=== PATIENT | female | born 1985 | race Caucasian/White ===

== ENCOUNTER 2020-06-27 19:25 | Emergency (ER) | payer OTHER, SELFPAY ==
[2020-06-27 19:37] VITALS: BP 128/89; PULSE 81; RESP 20; TEMP 36.2; O2SAT 100
--- NOTE | 2020-06-27 20:13 | ED.GENADULT ---
HPI - General Adult General Chief complaint: Skin/Abscess/Foreign Body Stated complaint: Burn on hand Time Seen by Provider: 06/27/20 20:14 Source: patient and RN notes reviewed Mode of arrival: ambulatory Limitations: no limitations History of Present Illness HPI narrative: 35-year-old female presents with complaints of right hand burn after grabbing a hot frying [place] for the past 2.5 hours. Romana reports while cooking dinner she grabbed a hot frying [place] causing burn injury to RT hand, allowed parents to eat prior to seeking medical attention. Ice and Silver sulfadiazine with little to no relief. Tenderness and blisters throughout RT hand. No loss of mobility. No smoke inhalation. No foreign body sensation. Denies fever or chills. Tolerating po liquids well. No throat or tongue swelling. LMP 06/07/2020. Remains active. The patient reports she have not been diagnosed with COVID-19. The patient reports she received 2 Pfizer COVID-19 vaccines. The patient reports she is not waiting for the results of a COVID-19 lab test. The patient reports she do not have weakness or fatigue. The patient reports she do not have a new or worsening cough or shortness of breath. Denies chest pain. The patient reports she do not have any rhinorrhea, congestion, sore throat, loss of taste or smell, nausea, vomiting, abdominal pain, and diarrhea. Denies recent traveling. Denies concerns for COVID-19 or exposures. At this time, patient is not suspected of having COVID-19. Some parts of this dictation were generated by voice recognition software and may contain typographical and/or grammatical inaccuracies. Related Data Home Medications Medication Instructions Recorded Confirmed levothyroxine 06/27/20 Allergies Allergy/AdvReac Type Severity Reaction Status Date / Time thimerosal Allergy Intermediate HIVES Verified 02/01/19 08:59 morphine Allergy Unknown Rash Verified 02/01/19 08:59 aloe Allergy Rash Verified 02/01/19 08:59 amoxicillin AdvReac Unknown sick to Verified 02/01/19 08:59 stomach BENZOPEROXIDE Allergy Rash Uncoded 02/01/19 08:59 AMOXICILLIN TRIHYDRATE AdvReac Nausea Uncoded 02/01/19 08:59 POTASSIUM CLAVULANATE AdvReac Nausea Uncoded 02/01/19 08:59 Review of Systems Review of Systems: Narrative: CONSTITUTIONAL: Denies fever, chills, sweats. EYES: Denies visual changes, redness, discharge. ENT: Denies rhinorrhea, congestion, sore throat, otalgia. CARDIOVASCULAR: Denies chest pain, palpitations, edema. RESPIRATORY: Denies dyspnea, wheezing, cough. GASTROINTESTINAL: Denies abdominal pain, nausea, vomiting, diarrhea. SKIN: Denies rash or itching. Burn to RT hand with blisters to fingers. No drainage. MUSCULOSKELETAL: Denies acute back pain, joint pain, or myalgia. NEUROLOGIC: Denies numbness or focal weakness. PSYCHIATRIC: Denies anxiety or depression. All other systems reviewed are negative, except as documented in HPI and below. [facility] Past Medical History Medical History (Updated 07/04/20 @ 18:14 by MARION Gallagher) Hypothyroidism Surgical History Surgical History (Updated 06/27/20 @ 20:35 by MARION Gallagher) History of adenoidectomy History of tonsillectomy Family History Family History Father Diabetes mellitus Hypertension Family history of arthritis Family history of malignant neoplasm Social History Social History (Updated 06/27/20 @ 20:36 by MARION Gallagher) Smoking status: Never smoker Tobacco type: cigarettes Second hand tobacco smoke exposure: No Alcohol intake: never Substance use: never Living arrangements: with family Occupation/Education: occupation Gender identity (if verbalized by the patient): Female Comments At time of signature, agree with nurse past medical, surgical, social, and family history. There is no relevant family history pertinent to the presenting complaint. E
[2020-06-27] MEDS: KETOROLAC (*BKC) 60 MG/2 ML VIAL IM (20:32)
[2020-06-27] MEDS: SILVER SULFADIAZINE 1% CR 50 GM JAR (*BKC) 1 APPLIC TOPICAL (20:36)
== END 2020-06-27 20:54 | disposition home or self-care (01) ==
PROVIDERS: Emergency Provider Nurse Practitioner Family; PCP Family Medicine
DX: T23.251A Burn of second degree of right palm, initial encounter (principal); T23.231A Burn of second degree of multiple right fingers (nail), not including thumb, initial encounter; X19.XXXA Contact with other heat and hot substances, initial encounter; E03.9 Hypothyroidism, unspecified
CPT/HCPCS: 16020; 96372; 99213; A9270; G0463; J1885

== ENCOUNTER 2023-06-29 15:44 | Emergency (ER) | payer OTHER, BC, SELFPAY ==
--- NOTE | ~2023-06-29 | CT_ITS ---
EXAMINATION: CT abdomen pelvis w con DATE: 06/29/2023 18:54 INDICATION: Left lower abdominal pain TECHNIQUE: Computed tomography (CT) of the abdomen and pelvis was performed with 100 mL Omnipaque-350 intravenous contrast. Automated exposure control and iterative reconstruction technique were employe d. The dose-length product was 1198.71 mGy-cm. COMPARISON: None FINDINGS: Lung bases are clear. Heart size is normal. No pericardial or pleural effusion. Small sliding-type hi atal hernia. Liver, gallbladder, spleen, pancreas, bilateral adrenal glands and left kidney are marcus l. 1 cm right renal cyst. Bowels including the appendix are normal. Bladder and uterus are normal. Co mplex cystic structures at the left adnexa which could represent either multiple ovarian cysts the la rgest measuring up to 3.3 cm versus a serpiginous dilated left fallopian tube. 1.2 cm right adnexal c yst. Trace amount of free fluid at the left adnexa. No pathologically enlarged abdominal or pelvic ly mphadenopathy. IMPRESSION: 1. Trace amount of free fluid at the left adnexa surrounding a complex cystic structure with appearan ce suspicious for a hydrosalpinx or pyosalpinx with differential including multiple independent ovari an cyst. Reviewed, dictated and finalized at location A. IMPRESSION: 1. Trace amount of free fluid at the left adnexa surrounding a complex cystic s tructure with appearance suspicious for a hydrosalpinx or pyosalpinx with diffe rential including multiple independent ovarian cyst.
--- NOTE | ~2023-06-29 | US_ITS ---
EXAMINATION: US transvaginal DATE: 06/29/2023 19:59 INDICATION: Left lower quadrant pain post egg retrieval TECHNIQUE: Multiple endovaginal sonographic images of the pelvis were obtained. COMPARISON: CT dated 06/29/2023 FINDINGS: The uterus measures 8.0 x 4.8 x 5.4 cm. The endometrial complex measures 10 mm in thickness. The rig ht ovary measures 3.6 x 1.9 x 3.0 cm. The left ovary measures 5.1 x 3.5 x 3.8 cm. There are bilateral subcentimeter simple appearing anechoic ovarian cysts along with several bilateral more complex appe aring cystic lesions. One measuring 2.8 cm in the left kidney is nearly anechoic with internal weblik e pattern of thin internal septations classic for hemorrhagic cyst. There are several additional comp karla or cystic lesions in both ovaries largest on the left measuring 3.1 cm and the largest on the rig ht measuring up to 2.1 cm which are heterogeneously hypoechoic, few with additional internal septatio ns which are without discernible internal vascular flow on color Doppler likely representing addition al hemorrhagic cysts. Pressure flow identified in the surrounding ovarian tissue at both ovaries on c olor Doppler. There is a small amount of anechoic free fluid in the cul-de-sac and around the left ov wei. IMPRESSION: 1. Multiple suggesting hemorrhagic simple and complex cystic lesions at both ovaries with appearance suggesting hemorrhagic cyst likely related to reported recent ovarian stimulation and a pretreatment. Consider 12 week follow-up ultrasound to document resolution. Reviewed, dictated and finalized at location A. IMPRESSION: 1. Multiple suggesting hemorrhagic simple and complex cystic lesions at both ov amy with appearance suggesting hemorrhagic cyst likely related to reported re cent ovarian stimulation and a pretreatment. Consider 12 week follow-up ultraso und to document resolution.
[2023-06-29 15:58] VITALS: BP 144/76; PULSE 82; RESP 18; TEMP 36.6; O2SAT 100
--- NOTE | 2023-06-29 17:18 | ED.ABDPAIN ---
HPI - Abdominal Pain General Chief Complaint: Abdominal Pain <Mercedes Andino PA-C - Last Filed: 06/30/23 00:25> Stated Complaint: ABDOMINAL PAIN <Mercedes Andino PA-C - Last Filed: 06/30/23 00:25> Time Seen by Provider: 06/29/23 17:18 <Mercedes Andino PA-C - Last Filed: 06/30/23 00:25> Focused HPI: This is a 38 year old female that presents to the ER for left lower abdominal pain. Reports the pain has been sharp and intermittent. Ongoing since earlier this morning. Reports some nausea. Denies fever, vomiting, dysuria or hematuria. GENERAL: Well-appearing, well-nourished, and in no acute distress. HEAD: Normocephalic, atraumatic. CHEST: Clear to auscultation. ?No respiratory distress. HEART: Regular rate and rhythm.? NEURO: ?Alert and oriented x3. Patient screened in triage and initial orders placed.? ?Additional care and disposition to be based upon?diagnostic testing and treatment. <Mercedes Andino PA-C - Last Filed: 06/30/23 00:25> Source: patient <Christian Taveras MD - Last Filed: 06/29/23 18:06> Mode of arrival: ambulatory <Christian Taveras MD - Last Filed: 06/29/23 18:06> Limitations: no limitations <Christian Taveras MD - Last Filed: 06/29/23 18:06> History of Present Illness HPI narrative: 38-year-old otherwise healthy here with complaints of sudden onset of left-sided lower abdominal pain radiating into her left flank since this morning. Patient states that she was visiting her mother who is undergoing rehab at [place] developed a sudden onset of pain. She also mentions that about 9 days ago she had a egg retrieval. No previous history of kidney stones or kidney infections. She denies any vaginal bleeding or discharge. <Christian Taveras MD - Last Filed: 06/29/23 18:06> MD elicited complaint: abdominal pain <Christian Taveras MD - Last Filed: 06/29/23 18:06> Pertinent past history: none <Christian Taveras MD - Last Filed: 06/29/23 18:06> Onset (ago): hour(s) (6) <Christian Taveras MD - Last Filed: 06/29/23 18:06> Pain Consistency: constant <Christian Taveras MD - Last Filed: 06/29/23 18:06> Location: [facility]Q <Christian Taveras MD - Last Filed: 06/29/23 18:06> Severity: moderate <Christian Taveras MD - Last Filed: 06/29/23 18:06> Quality: aching <Christian Taveras MD - Last Filed: 06/29/23 18:06> Radiation: L flank <Christian Taveras MD - Last Filed: 06/29/23 18:06> Migration to: no migration <Christian Taveras MD - Last Filed: 06/29/23 18:06> Exacerbating factors: nothing <Christian Taveras MD - Last Filed: 06/29/23 18:06> Relieving factors: nothing <Christian Taveras MD - Last Filed: 06/29/23 18:06> Associated symptoms: denies other symptoms <Christian Taveras MD - Last Filed: 06/29/23 18:06> Related Data Home Medications: Home Medications Medication Instructions Recorded Confirmed levothyroxine 100 mcg capsule 100 mcg PO DAILY 08/22/22 (Tirosint) <DAMIAN Christianson Last Filed: 06/30/23 00:25> Allergies/Adverse Reactions: Allergies Allergy/AdvReac Type Severity Reaction Status Date / Time thimerosal Allergy Intermediate HIVES Verified 06/29/23 16:01 morphine Allergy Unknown Rash Verified 06/29/23 16:01 aloe Allergy Rash Verified 06/29/23 16:01 amoxicillin AdvReac Unknown sick to Verified 06/29/23 16:01 stomach doxycycline AdvReac Unknown Unknown Verified 06/29/23 16:01 BENZOPEROXIDE Allergy Rash Uncoded 06/29/23 18:28 AMOXICILLIN TRIHYDRATE AdvReac Nausea Uncoded 06/29/23 18:28 POTASSIUM CLAVULANATE AdvReac Nausea Uncoded 06/29/23 18:28 <Mercedes Andino PA-C - Last Filed: 06/30/23 00:25> Review of Systems Review of Systems: All systems reviewed & are unremarkable except as noted in HPI and below <Christian Taveras MD - Last Filed: 06/29/23 18:06> Constitutional: Constitutional: Reports no additional constitutional complaints <Christian Taveras MD - Last Filed:
[2023-06-29 18:20] VITALS: BP 122/81; PULSE 72; RESP 18; O2SAT 100
[2023-06-29 18:29] LABS: Basophils Percent Auto 0.3 % (0.2-1.2); Eosinophils Absolute Auto 0.1 K/mm3 (0-0.3); Eosinophils Percent Auto 0.4 % (0-4.4); Hematocrit 41.4 % (37.0-47.0); Hemoglobin 14.5 g/dL (12.0-15.0); Immature Granulocyte Absolute 0.06 K/mm3 (0.00-0.031); Immature Granulocyte Percent A 0.5 % (0-0.5); Lymphocytes Absolute Auto 2.49 K/mm3 (0.9-3.2); Lymphocytes Percent Auto 22.3 % (18.3-44.2); Mean Corpuscular Hemoglobin 31.1 pg (26-34); Mean Corpuscular Volume 88.8 fl (80-100); Mean Platelet Volume 9.9 fl (7.4-10.4); Monocytes Absolute Auto 0.7 K/mm3 (0.1-0.6); Monocytes Percent Auto 6.6 % (2.6-8.5); Neutrophils Absolute Auto 7.8 K/mm3 (1.3-6.7); Neutrophils Percent Auto 69.9 % (45.5-73.1); Platelet Count Result 269 k/mm3 (150-375); Red Blood Count 4.66 M/mm3 (4.2-5.4); Red Cell Distribution Width 12.4 % (11.5-14.5); White Blood Count 11.2 K/mm3 (4.5-10.0)
[2023-06-29 18:34] LABS: Appearance Urine Clear (Clear); Bacteria Urine None Seen /hpf; Bilirubin Urine Negative (Negative); Blood Urine 1+ (Negative); Color Urine Yellow (Yellow); Glucose Urine UA Negative (Negative); Ketones Urine Trace mg/dL (Negative); Leukocyte Esterase Ur Negative LEU/UL (Negative); Nitrate Urine Negative (Negative); Non Pathogenic Casts 0-2; Protein Urine Negative (Negative); RBC Urine 0-2 /hpf (0-2); Specific Grav Ur 1.016 (1.001-1.035); Squamous Epithelial Cell Urine Occasional /hpf (Few); Urobilinogen Urine 0.2 mg/dL (<2.0); WBC Urine 0-5 /hpf (0-3); pH Urine 5.5 (5.0-9.0)
[2023-06-29 18:37] LABS: Add Urine Microscopic? YES
[2023-06-29 18:40] LABS: Alanine Aminotransferase 36 U/L (6-35); Albumin Level 4.6 g/dL (3.5-5.1); Alkaline Phosphatase 88 U/L (38-126); Anion Gap 7 mmol/L (4-12); Aspartate Amino Transferase 35 U/L (14-36); Bilirubin,Total 0.7 mg/dL (0.2-1.3); Blood Urea Nitrogen 14 mg/dL (7-17); Calcium 9.8 mg/dL (8.4-10.2); Carbon Dioxide 25 mmol/L (22-30); Chloride 106 mmol/L (98-107); Estimated CRCL calculation 113 ml/min; Estimated Glomerular Filt Rate > 60; Glucose 117 mg/dL (65-110); Lipase 84 U/L (23-300); Potassium 3.9 mmol/L (3.4-5.0); Sodium 138 mmol/L (137-145)
[2023-06-29 19:18] VITALS: BP 130/96; PULSE 67; RESP 16; O2SAT 99
[2023-06-29 21:51] VITALS: BP 134/75; PULSE 67; RESP 18; O2SAT 99
== END 2023-06-29 21:52 | disposition home or self-care (01) ==
PROVIDERS: Physician Assistant; Emergency Provider Emergency Medicine; PCP Family Medicine
DX: N83.202 Unspecified ovarian cyst, left side (principal); E03.9 Hypothyroidism, unspecified
CPT/HCPCS: 36415; 74177; 76830; 80053; 81001; 81025; 83690; 85025; 99284; Q9967

== ENCOUNTER 2023-07-03 15:32 | Emergency (ER) | payer OTHER, BC, SELFPAY ==
--- NOTE | ~2023-07-03 | US_ITS ---
EXAMINATION: US transvaginal DATE: 07/03/2023 18:31 INDICATION: left adnexal pain TECHNIQUE: Multiple transvaginal sonographic images of the pelvis were obtained. COMPARISON: 06/29/2023; CT abdomen pelvis 06/29/2023 FINDINGS: Uterus: 7.7 x 3.7 x 4.6 cm. Endometrial complex measures 4 mm. Right Ovary: 3.1 x 2.1 x 2.0 cm. Vascular flow is present. 9 mm hypoechoic focus. Left Ovary: 5.3 x 3.4 x 3.3 cm. Vascular flow is present. 2.3 and 2.2 cm cystic lesions with irregula r, avascular internal echogenicity. There is trace free fluid in the pelvis. IMPRESSION: No sonographic evidence to suggest ovarian torsion. Nonsimple bilateral ovarian cysts, likely representing resolving hemorrhagic cysts given the history of recent egg retrieval, prior ultrasound findings, and encouraging interval change. Prior recommenda tion for 3 month follow-up ultrasound to document complete resolution is unchanged. Reviewed, dictated and finalized at location K. IMPRESSION: No sonographic evidence to suggest ovarian torsion. Nonsimple bilateral ovarian cysts, likely representing resolving hemorrhagic cy sts given the history of recent egg retrieval, prior ultrasound findings, and e ncouraging interval change. Prior recommendation for 3 month follow-up ultrasou nd to document complete resolution is unchanged.
[2023-07-03 15:33] VITALS: BP 126/93; PULSE 66; RESP 18; TEMP 36.3; O2SAT 100
[2023-07-03 16:33] VITALS: BP 157/107; PULSE 88; RESP 16; TEMP 36.6; O2SAT 100
[2023-07-03 16:43] LABS: Basophils Percent Auto 0.5 % (0.2-1.2); Eosinophils Absolute Auto 0.1 K/mm3 (0-0.3); Eosinophils Percent Auto 1.9 % (0-4.4); Hematocrit 42.6 % (37.0-47.0); Hemoglobin 14.8 g/dL (12.0-15.0); Immature Granulocyte Absolute 0.01 K/mm3 (0.00-0.031); Immature Granulocyte Percent A 0.1 % (0-0.5); Lymphocytes Absolute Auto 2.54 K/mm3 (0.9-3.2); Lymphocytes Percent Auto 34.7 % (18.3-44.2); Mean Corpuscular HGB Conc 34.7 g/dl (32-36); Mean Corpuscular Hemoglobin 31.2 pg (26-34); Mean Corpuscular Volume 89.7 fl (80-100); Mean Platelet Volume 9.9 fl (7.4-10.4); Monocytes Absolute Auto 0.9 K/mm3 (0.1-0.6); Monocytes Percent Auto 11.9 % (2.6-8.5); Neutrophils Absolute Auto 3.7 K/mm3 (1.3-6.7); Neutrophils Percent Auto 50.9 % (45.5-73.1); Platelet Count Result 321 k/mm3 (150-375); Red Blood Count 4.75 M/mm3 (4.2-5.4); White Blood Count 7.3 K/mm3 (4.5-10.0)
[2023-07-03 16:48] LABS: Bacteria Urine None Seen /hpf; Non Pathogenic Casts 0-2; RBC Urine >100 /hpf (0-2); Squamous Epithelial Cell Urine None Seen /hpf (Few)
[2023-07-03 16:55] LABS: Appearance Urine Turbid (Clear); Bilirubin Urine Negative (Negative); Blood Urine 3+ (Negative); Color Urine Orange (Yellow); Glucose Urine UA Negative (Negative); Ketones Urine Negative (Negative); Leukocyte Esterase Ur 1+ LEU/UL (Negative); Nitrate Urine Negative (Negative); Protein Urine 1+ mg/dL (Negative); Specific Grav Ur 1.025 (1.001-1.035); Urobilinogen Urine 0.2 mg/dL (<2.0); pH Urine 5.5 (5.0-9.0)
[2023-07-03 16:57] LABS: Alanine Aminotransferase 37 U/L (6-35); Albumin Level 4.4 g/dL (3.5-5.1); Alkaline Phosphatase 87 U/L (38-126); Anion Gap 10 mmol/L (4-12); Aspartate Amino Transferase 33 U/L (14-36); Bilirubin,Total 0.6 mg/dL (0.2-1.3); Blood Urea Nitrogen 17 mg/dL (7-17); Calcium 9.6 mg/dL (8.4-10.2); Carbon Dioxide 22 mmol/L (22-30); Chloride 107 mmol/L (98-107); Estimated CRCL calculation 113 ml/min; Estimated Glomerular Filt Rate > 60; Glucose 102 mg/dL (65-110); Lipase 72 U/L (23-300); Potassium 3.9 mmol/L (3.4-5.0); Sodium 139 mmol/L (137-145)
[2023-07-03 16:57] LABS: Add Urine Microscopic? YES
--- NOTE | 2023-07-03 17:01 | ED.ABDPAIN ---
HPI - Abdominal Pain General Chief Complaint: Abdominal Pain Stated Complaint: left abd pain Time Seen by Provider: 07/03/23 16:32 History of Present Illness HPI narrative: Patient is a 38-year-old female with history of hypothyroidism, infertility issues, here with left lower quadrant and adnexal pain. She states this pain it has been present for several days, she was seen in this emergency department 2 days ago, received a CT scan and ultrasound which showed some hemorrhagic cyst on the left ovary. She notes that she is currently following with a fertility specialist out of [facility]. She had egg retrieval on June 19. She has had continued left adnexal pain which she describes as pain attacks which occurred approximately 1-3 times daily. It is a sharp pain in her left lower quadrant that makes her double over and unable to do anything else. She did contact her fertility specialists up at [facility] today and they told her that they could get her in for an appointment in 1 hour. Since she lives almost 5 hours away from their clinic she was unable to make these appointments and requested to be seen in their clinic tomorrow. They demanded that she come into the emergency department for repeat ultrasound to rule out ovarian torsion. Patient currently does not have pain right now. She denies any urinary symptoms. She did start her menstrual cycle approximately 2 days ago. Related Data Home Medications Medication Instructions Recorded Confirmed levothyroxine 100 mcg capsule 100 mcg PO DAILY 08/22/22 (Tirosint) Allergies Allergy/AdvReac Type Severity Reaction Status Date / Time thimerosal Allergy Intermediate HIVES Verified 07/03/23 15:37 morphine Allergy Unknown Rash Verified 07/03/23 15:37 aloe Allergy Rash Verified 07/03/23 15:37 amoxicillin AdvReac Unknown sick to Verified 07/03/23 15:37 stomach doxycycline AdvReac Unknown Unknown Verified 07/03/23 15:37 BENZOPEROXIDE Allergy Rash Uncoded 07/03/23 15:37 AMOXICILLIN TRIHYDRATE AdvReac Nausea Uncoded 07/03/23 15:37 POTASSIUM CLAVULANATE AdvReac Nausea Uncoded 07/03/23 15:37 Review of Systems Review of Systems: All systems reviewed & are unremarkable except as noted in HPI and below PMFSH Past Medical History Medical History Hypothyroidism Surgical History Surgical History History of adenoidectomy History of tonsillectomy Family History Family History Father Diabetes mellitus Hypertension Family history of arthritis Family history of malignant neoplasm Mother Rectal cancer Diabetes mellitus Hypertension Heart disease Grandparent Stomach cancer Diabetes mellitus Hypertension Heart disease Grandparent Lung cancer Social History Social History Smoking status: Never smoker Tobacco type: cigarettes Second hand tobacco smoke exposure: No Alcohol intake: never Substance use: never Living arrangements: with family Occupation/Education: occupation Gender identity (if verbalized by the patient): Female Exam Narrative: GENERAL: Well-appearing, well-nourished, and in no acute distress. HEAD: Normocephalic, atraumatic. EYES: PERRLA and EOMI. ENT: Nares clear. Mucous membranes moist. NECK: Supple. CHEST: Clear to auscultation. No respiratory distress. HEART: Regular rate and rhythm. Normal peripheral pulses. ABDOMEN: Soft, nontender, nondistended. EXTREMITIES: Normal range of motion. No edema. SKIN: Warm, dry, no rash. NEURO: No focal deficits. Alert and oriented x3. PSYCH: Normal mood and affect. Course Course Emergency Course: Chart review performed. Patient here with left lower abdominal pain. She is reportedly undergoing fertility treatments out of [place], had recent egg retreival. Called her
[2023-07-03 18:01] VITALS: BP 118/80
--- NOTE | 2023-07-05 11:40 | PC.NURSE ---
LATE ENTRY This note is being entered to document information to the patient's record. Lab notified this director that the urine culture that was ordered and collected was unable to be processed, culture order was cancelled by lab. Mercedes EPPERSON on duty today was asked to review this chart to determine if patient needed to return for recollection. 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
== END 2023-07-03 20:54 | disposition home or self-care (01) ==
PROVIDERS: Emergency Medicine; Emergency Provider Student in an Organized Health Care Education/Training Program; PCP Family Medicine
DX: N83.202 Unspecified ovarian cyst, left side (principal); E03.9 Hypothyroidism, unspecified
CPT/HCPCS: 36415; 76830; 80053; 81001; 81025; 83690; 85025; 87086; 99284

== ENCOUNTER 2024-02-04 09:00 | Outpatient (CLI) | payer OTHER, BC, SELFPAY ==
--- NOTE | 2024-02-04 11:15 | NEURO_ITS ---
Impression: # Complains of pain in wrist/elbow. Not diabetic. ? # Normal Nerve Conduction Study; No Carpal Tunnel Syndrome or ulnar neuropathy. ? # Normal needle/EMG exam. ? # Clinical correlation recommended. Nerve Conduction Studies Anti Sensory Summary Table ?Stim Site NR Peak (ms) P-T Amp (?V) Site1 Site2 Delta-P (ms) Dist (cm) Yair (m/s) Left Median Anti Sensory (2-3nd Digit) Wrist ? 2.6 92.7 Wrist 2-3nd Digit 2.6 14.0 54 Wrist ? 2.4 73.8 Wrist 2-3nd Digit 2.6 14.0 54 Right Median Anti Sensory (2-3nd Digit) Wrist ? 3.1 66.7 Wrist 2-3nd Digit 3.1 14.0 45 Wrist ? 3.3 50.5 Wrist 2-3nd Digit 3.1 14.0 45 Left Radial Anti Sensory (Base 1st Digit) Wrist ? 1.4 23.7 Wrist Base 1st Digit 1.4 0.0 Right Radial Anti Sensory (Base 1st Digit) Wrist ? 1.9 24.1 Wrist Base 1st Digit 1.9 0.0 Left Ulnar Anti Sensory (5th Digit) Wrist ? 1.8 58.7 Wrist 5th Digit 1.8 14.0 78 Right Ulnar Anti Sensory (5th Digit) Wrist ? 1.9 63.2 Wrist 5th Digit 1.9 14.0 74 Motor Summary Table ?Stim Site NR Onset (ms) O-P Amp (mV) Site1 Site2 Delta-0 (ms) Dist (cm) Yair (m/s) Left Median Motor (Abd Poll Brev) Wrist ? 3.6 4.2 Elbow Wrist 4.9 28.0 57 Elbow ? 8.5 3.6 Right Median Motor (Abd Poll Brev) Wrist ? 2.8 2.5 Elbow Wrist 4.9 28.0 57 Elbow ? 7.7 1.4 Left Ulnar Motor (Abd Dig Minimi) Wrist ? 2.2 7.8 A Elbow Wrist 5.4 31.0 57 A Elbow ? 7.6 6.0 Right Ulnar Motor (Abd Dig Minimi) Wrist ? 1.8 6.6 A Elbow Wrist 5.2 29.0 56 A Elbow ? 7.0 5.7 F Wave Studies ?NR F-Lat (ms) L-R F-Lat (ms) Left Median (Mrkrs) (Abd Poll Brev) ? 27.11 0.67 Right Median (Mrkrs) (Abd Poll Brev) ? 26.44 0.67 Left Ulnar (Mrkrs) (Abd Dig Min) ? 26.68 0.87 Right Ulnar (Mrkrs) (Abd Dig Min) ? 25.81 0.87 EMG ?Side Muscle Nerve Root Ins Act Fibs Amp Dur Recrt Comment Right 1stDorInt Ulnar C8-T1 Nml Nml Nml Nml Nml Right Ext Indicis Radial (Post Int) C7-8 Nml Nml Nml Nml Nml Right Ext Digitorum Radial (Post Int) C7-8 Nml Nml Nml Nml Nml Right BrachioRad Radial C5-6 Nml Nml Nml Nml Nml Right PronatorTeres Median C6-7 Nml Nml Nml Nml Nml Right Abd Poll Brev Median C8-T1 Nml Nml Nml Nml Nml Right ABD Dig Min Ulnar C8-T1 Nml Nml Nml Nml Nml Left 1stDorInt Ulnar C8-T1 Nml Nml Nml Nml Nml Left Ext Indicis Radial (Post Int) C7-8 Nml Nml Nml Nml Nml Left Ext Digitorum Radial (Post Int) C7-8 Nml Nml Nml Nml Nml Left BrachioRad Radial C5-6 Nml Nml Nml Nml Nml Left PronatorTeres Median C6-7 Nml Nml Nml Nml Nml Left Abd Poll Brev Median C8-T1 Nml Nml Nml Nml Nml Left ABD Dig Min Ulnar C8-T1 Nml Nml Nml Nml Nml MTDD
== END 2024-02-04 09:01 | disposition home or self-care (01) ==
PROVIDERS: PCP Family Medicine; Visit Provider Plastic Surgery
DX: G56.03 Carpal tunnel syndrome, bilateral upper limbs (principal)
CPT/HCPCS: 95886; 95911

== ENCOUNTER 2024-02-26 08:57 | Outpatient (CLI) | payer OTHER, BC, SELFPAY ==
--- NOTE | ~2024-02-26 | XR_ITS ---
Right wrist Technique: PA, oblique, lateral, and ulnar deviation views were obtained. Clinical History: Ulnar nerve lesion Findings: No acute fracture or dislocation is seen. Osseous alignment is anatomic. Joint spaces are p reserved. Soft tissues are unremarkable. Impression: Unremarkable right wrist radiographs. Reviewed, dictated and finalized at location . 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
--- OUTSIDE RECORDS SUMMARY | 2024-02-28 16:35 | XMS_ITS | Encounter Summary ---
Author Organization [facility] Address [address] [place] [address] Care Team Providers Care Publications Writer Name Role Phone Andrea Peña MD Primary Care Provider [phone] Encounter Details Date Type Department Care Team (Late st Contact Info) Description 07/18/2023 Lab Requisition [facility] - DermPath Lab [address] [place] [address] Nalini Fox MD [address] [facility] [address] [place] [address] Social History Tobacco Use Types Packs/Day Years Used Date Smoking Tobacco: Never Smokeless Tobacco: Never Alcohol Use Standard Drinks/Week Comments Yes 0 (1 standard drink = 0.6 oz pur e alcohol) Sex and Gender Information Value Date Recorded Sex Assigned at Not on file Gender Identity Not on file Sexual Orientation Not on file documented as of this encounter Plan of Treatment Not on file documented as of this encounter Procedures Procedure Name Priority Date/Time Associated Diagnosis Comments DERMATOPATHOLOGY Routine 07/18/2023 1:36 PM CDT documented in this encounter Results * DERMATOPATHOLOGY (07/18/2023 1:36 PM CDT) Case Report Dermatopathology Report ? Case: [id number] ? Authorizing Provider: ??Nalini Fox MD ?Collected: ? 07/18/2023 01:36 PM ? Ordering Location: ? [facility] - ??Received: ?07/19/2023 01:56 PM ? DermPath Lab ? Pathologist: ? Denisa Sunshine MD ? Specimen: ?Skin, left back ? 4 3:53 PM CDT DERMATOPATHOLOGY LABORATORY Final Diagnosis Specimen A. SKIN, left back: INTRADERMAL MELANOCYTIC NEVUS (D22.5) 4 3:53 PM CDT DERMATOPATHOLOGY LABORATORY Clinical History Nevus irregular irritated Jonas papule 4 3:53 PM CDT DERMATOPATHOLOGY LABORATORY Gross Description Specimen A: Received is one formalin filled container labeled with the patient's name and designated left back. The specimen consists of a shave biopsy measuring 8x5x4 mm. Jar 0. 4 3:53 PM CDT DERMATOPATHOLOGY LABORATORY Microscopic Description Specimen A. SKIN, left back: There are nests of cytologically bland melanocytes within the dermis that mature with depth. 4 3:53 PM CDT DERMATOPATHOLOGY LABORATORY Disclaimer An external and internal positive and negative controls are appropriate for the histochemical, immunohistochemical and immunofluorescence stain(s) in this case (if any), except where stated explicitly. The performance characteristics of the stain(s) cited in this report were developed and its performance characteristic determined by the Dermatopathology Laboratory at [facility], directed by Dr. Cyndie Webster. These tests need not be, and therefore are not, approved by the [place] Food and Drug Administration. The tests are used for clinical purposes. Billing Codes Specimen Charges Stain Charges 72541 1 4 3:53 PM CDT DERMATOPATHOLOGY LABORATORY Embedded Images 4 3:53 PM CDT DERMATOPATHOLOGY LABORATORY Pathology/Cytolo gy TISSUE SPECIMEN FROM SKIN / Unknown 07/18/2023 1:36 PM CDT 07/19/2023 1:56 PM CDT Nalini Fox MD LAB - PATHOLOGY/CYTO LOGY ORDERABLES DERMATOPATHOLOGY LABORATORY [facility] - Department of Dermatology [facility] Medicine [address] [place] [address], [address] [phone] documented in this encounter Visit Diagnoses Not on filedocumented in this encounter Care Teams Publications Writer Relationship Specialty Start Date End Date Andrea Peña MD PCP - General 07/13/15 documented as of this encounter
--- OUTSIDE RECORDS SUMMARY | 2024-02-28 16:35 | XMS_ITS | Clinical Summary ---
Author Organization [facility] Address [address] [place] [address] Care Team Providers Care Lens Generator Name Role Phone Andrea Peña MD Primary Care Provider [phone] Allergies Active Allergy Reactions Criticality Noted Date Comments Aloe Vera Unknown Amoxicillin-Pot Clavulanate Nausea & Vomiting Low 0 08/23/2015 Estradiol Rash Medium 08/14/2023 Morphine Rash Medium 08/23/2015 Opioids - Morphine Analogues Thimerosal Unknown 08/05/2020 Medications valACYclovir (VALTREX) 500 mg tablet Take 1 tablet (500 mg total) by mouth daily 01/13/20 23 Active chorionic gonadotropin (PREGNYL) 10,000 unit injection Inject up to 10,000 units IM as directed by 1 each 1 03/01/19 24 Active Additional Information Patient not taking.Reported on 02/14/2024 follitropin beta (Follistim AQ) 900 unit/1.08 mL cartridge Inject 75u to 300u SQ daily as directed by 3.24 mL 2 03/01/19 24 Active Additional Information Patient not taking.Reported on 02/14/2024 menotropins (Menopur) 75 unit recon soln Inject 75 to 300 units SQ daily as directed by 30 each 2 03/01/19 24 Active Additional Information Patient not taking.Reported on 02/14/2024 azithromycin (ZITHROMAX) 500 mg tabletIndication s:Prophylaxis, Medical Take both tabs po at the same time with food as directed by 2 tablet 1 03/01/19 24 Active Additional Information Patient not taking.Reported on 02/14/2024 folic acid (FOLVITE) 800 mcg tablet Take 1 tablet (800 mcg total) by mouth daily 30 tablet 05/28/19 025 Active Additional Information Patient not taking.Reported on 02/14/2024 vit 19-yjdg-vsjmb-dh a 27mg iron- 800 mcg-250 mg capsule Take 1 tablet by mouth daily 30 capsule 05/28/19 24 Active Additional Information Patient not taking.Reported on 02/14/2024 Tirosint 112 mcg capsuleIndicatio ns:Hypothyroidis m, unspecified type Take one tablet by itself, with water, 30 minutes prior to breakfast. Take 2 tablets one day a week (8 total) 100 capsule 3 08/22/19 24 Active estradioL (VIVELLE-DOT) 0.1 mg/[address] 2 patches on the skin 09/21/19 Active needle, disp, 18 G (BD Regular Bevel Raymond) 18 gauge x 1 1/2 needle 09/20/19 Active needle, disp, 23 gauge 23 gauge x 1 1/2 needle 09/20/19 Active progesterone 50 mg/mL injection Inject 1 mL (50 mg total) into the muscle as instructed daily 09/20/19 Active syringe, disposable, 3 mL syringe 09/20/19 Active Synthroid 125 mcg tablet Take 1 tablet (125 mcg total) by mouth daily for 1 day Lot [id number] exp 10/24/23 14 tablet 10/03/19 Active PNV-DHA 27 mg iron-1 mg -300 mg capsule TAKE 1 CAPSULE BY MOUTH EVERY DAY 90 capsule 2 01/25/20 24 Active Clomid 50 mg tablet 02/12/19 25 Active doxycycline hyclate 100 mg capsule Take 1 tab PO BID x 5 days. Start day prior to scheduled HSG. 12/13/19 24 Active ganirelix 250 mcg/0.5 mL syringe Inject 250 mcg under the skin daily 12/13/19 Active letrozole (FEMARA) 2.5 mg tablet Take 3 tablets (7.5 mg total) by mouth daily 12/13/19 24 Active BD SafetyGlide Needle 18 gauge x 1 1/2 needle USE TO DRAW UP AND INJECT TESTOSTERONE 01/21/20 24 Active BD Luer-Caren Syringe 3 mL 23 gauge x 1 1/2 syringe USE TO DRAW UP AND INJECT TESTOSTERONE 01/21/20 24 Active BD Luer-Caren Syringe 3 mL 23 gauge x 1 1/2 syringe 02/12/19 25 Active testosterone cypionate (DEPO-TESTOTERON E) 200 mg/mL injection INJECT 0.1ML INTRAMUSCULARLY EVERY WEEK 02/09/19 25 Active azithromycin (ZITHROMAX) 250 mg tablet TAKE 2 TABLETS BY MOUTH TODAY, THEN TAKE 1 TABLET DAILY FOR 4 DAYS DIRECTED 01/21/20 24 Active Active Problems Problem Noted Date Diagnosed Date Other fatigue 10/08/2023 Pedal edema 10/08/2023 Encounter for artificial insemination 03/24/2023 Abnormal weight gain 10/28/2022 Assessment & Plan (10/28/2022 11:48 PM CDT): Discussed lifestyle modifications BMI 29.0-29.9,adult 12/15/2020 Assessment & Plan (12/15/2020 10:58 PM ER NURSE): She is interested in weight loss and restarted Weight Watcher's recently Reviewed lifestyle modifications She is not interested in pharmacotherapy at this time Endometrial polyp 09/22/2019 Low grade squamous intraepit h lesion on cytologic smear cervix (lgsil) 08/19/2019 Hypothyroidism 06/19/2018 Assessment & Plan (02/18/2023 5:26 PM ER NURSE): TSH is at goal Continue Tirosint Repeat TSH in 4 weeks Would likely need to add back the skipped Tirosint dose every 10 days and add another extra tablet one day per week, once occurs Assessment & Plan (10/28/2022 11:47 PM CDT): Continue Tirosint 112 mcg once daily, with an extra tablet every 10th day ( as tirosint cannot be broken in half to take an extra 1/2 tablet once weekly). TSH currently at goal Follow TSH/FT4 Assessment & Plan (12/05/2021 10:49 AM CDT): - Continue Tirosint 112 mcg once daily, skipping one tablet every 10 days - Repeat thyrodi labs in 4-6 weeks to ensure stability - When IVF occurs or first test is positive, she will start taking Tirosint DAILY, and ADD one day when she takes an EXTRA tablet of Tirosint (8 tablets per week). Would need to get thyroid testing done right away Assessment & Plan (12/15/2020 10:57 PM ER NURSE): Continue Synthroid 75 mcg once daily TSH today is up slightly from 10/2020 to 2.5, but remains in the normal range TPO antibody and repeat US are pending May need higher Synthroid dosing, not uncommon to require an LT4 dose increase within the first year, as hypothyroidism progresses. Average replacement dose is 1.6 mcg of LT4/kg of body weight, so she may need an additional dose up-titration. 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 6th [address] [place] [phone] Justus Wiggins PA Snoring (Primary Dx); Hypersomnia 02/14/2024 11:14 AM ER NURSE - 02/14/2024 11:59 PM ER NURSE Hospital Encounter [facility] Medical Office Building 1 Lab [facility] [place] [address] Well woman exam Discharge Disposition: Discharge to home or self care 02/14/2024 9:00 AM ER NURSE Office Visit [facility] Obstetrical Gynecology [address] [place] [phone] Simi Bess MD Well woman exam (Primary Dx) 01/31/2024 10:00 AM ER NURSE Procedure visit [facility] Neuro Sleep [address] [place] [phone] Sleep disorder (Primary Dx); Snoring; Hypersomnia; Class 2 obesity due to excess calories with body mass index (BMI) of 38.0 to 38.9 in adult, unspecified whether serious comorbidity present 01/23/2024 8:37 PM ER NURSE - 01/23/2024 11:59 PM ER NURSE Hospital Encounter [address] [address] Hypothyroidism, unspecified type Discharge Disposition: Discharge to home or self care 01/23/2024 12:15 PM ER NURSE Lab [facility] Outpatient Lab at [address] [address] Hypothyroidism (Primary Dx) 01/21/2024 11:00 AM ER NURSE Office Visit [facility] Neuro Sleep [address] [place] [phone] Justus Wiggins PA Snoring (Primary Dx); Hypersomnia; Class 2 obesity due to excess calories with body mass index (BMI) of 38.0 to 38.9 in adult, unspecified whether serious comorbidity present 01/02/2024 2:40 PM ER NURSE Telemedicine [facility] Endocrinology Metabolism and Lipid [address] [facility] 2nd Floor [address] [place] [address] Stephani Gallego MD Hypothyroidism, unspecified type (Primary Dx) 01/01/2024 9:30 AM ER NURSE Lab [facility] Outpatient Lab at [address] [address] Hypothyroidism (Primary Dx) 01/01/2024 9:27 AM ER NURSE - 01/01/2024 11:59 PM ER NURSE Hospital Encounter [address] [address] Hypothyroidism, unspecified type Discharge Disposition: Discharge to home or self care 12/28/2023 3:00 PM ER NURSE Telemedicine [facility] Obstetrical Gynecology [address] [place] [phone] Simi Bess MD Hydrosalpinx (Primary Dx) 12/25/2023 3:20 PM ER NURSE Office Visit [facility] - [facility] ENT [address] [facility] Medical Office Building [address] [place] [phone] Tori Riojas NP Excessive cerumen in both ear canals (Primary Dx) 12/17/2023 Telephone [facility] Obstetrical Gynecology [address] [place] [address] [address] [place] [phone] Simi Bess MD 12/14/2023 4:49 PM ER NURSE - 12/14/2023 11:59 PM ER NURSE Hospital Encounter [address] [address] Hypothyroidism, unspecified type Discharge Disposition: Discharge to home or self care 12/14/2023 11:00 AM ER NURSE Lab [facility] Outpatient Lab at [address] [address] Hypothyroidism (Primary Dx) 12/14/2023 4:09 AM ER NURSE - 12/14/2023 11:59 PM ER NURSE Hospital Encounter [facility] [address], [address] [place] [address] Discharge Disposition: Discharge to home or self care 12/05/2023 Telephone [facility] Advanced Medicine ([facility]) - [facility] ENT [address] [facility] Medicine 11th [place] [address] [place] [phone] Lamar Flores MS from Last 3 Months Immunizations Name Administration Dates Next Due DTP 08/16/1989, 6,1984,09/02,1984 Influenza, Quadrivalent, Spl it, Preservative Free, Intramuscular 11/19/2019 Influenza, Unspecified 11/15/2020 MMR 02/17/2022,09/17/1992,08/04/1985 OPV 08/16/1989, 6,1984,09/02,1984 Pfizer SARS-CoV-2 Monovalent Vaccination (12+ Yrs) PURPLE 01/09/2021,05/29/2020,05/08/2020 Tdap 12/22/2017 Surgical History Surgery Date Site/Laterality Comments EYE SURGERY Eye Surgery - (Added by TW Conv) TX TONSILLECTOMY PRIMARY/SECONDARY <AGE 12 Tonsillectomy - (Added by TW Conv) TONSILECTOMY, ADENOIDECTOMY, BILATERAL MYRINGOTOMY AND TUBES COLPOSCOPY OVUM / OOCYTE RETRIEVAL 02/05/2015 - 02/05/2016 Bilateral OVUM / OOCYTE RETRIEVAL 02/05/2015 - 02/05/2016 Bilateral OVUM / OOCYTE RETRIEVAL 05/01/2022 egg retrieval TRANSFER EMBRYO INTRAUTERINE 06/30/2022 FRESH THAWED OOCYTES 2 DAY 3 Medical History Medical History Date Comments Personal history of other sp ecified conditions History of abnormal cervical Papanicolaou smear - (Added by TW Conv) Personal history of other in fectious and parasitic diseases History of HPV infection - ( Added by TW Conv) Headache Urinary tract infection Migraine Hypothyroidism Family History Medical History Relation Name Comments Obesity Father Johan White Osteoarthritis Father Johan White Snoring Father Johan White Cancer Mother Britni White Cervical cancer Mother Britni White Dx in her 3 0s Diabetes Mother Britni Whiet Heart disease Mother Britni White Hyperlipidemia Mother Britni White Hypertension Mother Britni White Obesity Mother Britni White Osteoarthritis Mother Britni White Rectal cancer Mother Britni White Family histor y of malignant neoplasm - (Added by TW Conv) Skin cancer Mother Britni White Sleep apnea Mother Britni White Snoring Mother Britni White Breast cancer Neg Hx Ovarian cancer Neg Hx Uterine cancer Neg Hx Relation Name Status Comments Father Johan White Alive Mother Britni White Alive Other Social History Tobacco Use Types Packs/Day Years Used Date Smoking Tobacco: Never Passive Smoke Exposure: Never Smokeless Tobacco: Never Alcohol Use Standard Drinks/Week Comments Yes 0 (1 standard drink = 0.6 oz pur e alcohol) AUDIT-C Answer Date Recorded Frequency of Alcohol Consumption Not on file 09/23/2021 Q2: How many drinks containi ng alcohol do you have on a typical day when you are drinking? Patient does not drink Frequency of Binge Drinking Not on file 09/05 Personal Safety Answer Date Recorded Have you ever been in or are you currently in a harmful physical or emotional relationship or is someone making you feel afraid or unsafe? Denies 04/29/2022 Comments No Sex and Gender Information Value Date Recorded Sex Assigned at Not on file Legal Sex Female 5:24 AM ER NURSE Gender Identity Female 10/03/2021 7:59 AM CDT Sexual Orientation Straight 07/29/2020 7: 16 AM CDT Obstetrics History Para Term AB IAB SAB Ectopic Multiple Livin g Live Births 1 0 0 0 1 0 0 1 0 0 0 Date Outcome GA Total Labor Labor/2nd/3rd Weight Sex Type Anes PTL Kelly A1 A5 Name Clin Ectopic Comments 11/2022 - G1: IUI/TDI --> ec topic s/p MTX x1 13\0\0 Last Filed Vital Signs Vital Sign Reading Time Taken Comments Blood Pressure 104/60 02/14/2024 8:57 AM ER NURSE Pulse 65 01/21/2024 10:46 AM ER NURSE Temperature 36.3 ??C (97.4 ??F) 01/21/2024 10:[address] Respiratory Rate 19 05/01/2022 9:50 AM CDT Oxygen Saturation 99% 01/21/2024 10:46 AM ER NURSE Inhaled Oxygen Concentration - - Weight 108.4 kg (239 lb) 02/14/2024 8:57 AM ER NURSE Height 167.6 cm (5' 6 ) 02/14/2024 8:57 AM ER NURSE Body Mass Index 38.58 02/14/2024 8:57 AM ER NURSE Plan of Treatment Health Maintenance Due Date Last Done Comments Depression Screening 1984 Pneumococcal vaccine <65 (1 of 2 - PCV) 1990 Varicella Vaccines (1 of 2 - 13+ 2-dose series) 1997 Hepatitis B Screening 2002 Zoster Vaccine (1 of 2) 05/01/2003 Covid-19 Vaccine ( season) 2023 01/09/2021, 05/29/2020, 05/08/2020 Influenza Vaccine (#1) 2023 3, 11/15/2020, 11/19/2019 Cervical Cancer Screening 02/13/20252024, 02/14/2024, 02/12/2023, Additional history exists Regular Well Visit/Exam 18-64 02/13/2025 02/14/2024, 02/12/2023, 09/23/2021, Additional history exists DTaP/Tdap/Td Vaccine (7 - Td or Tdap) 12/23/2027 12/22/2017, 08/16/1989, 11/17/1985, Additional history exists Hepatitis C Screening Completed 01/19/2023 , 02/09/2022, 06/26/2019 HPV Vaccines Aged Out No longer eligi ble based on patient's age to complete this topic Procedures Procedure Name Priority Date/Time Associated Diagnosis Comments TSH Routine 02/26/2024 10:55 AM ER NURSE Hypothyroidism, unspecified type T4, FREE Routine 02/26/2024 10:55 AM ER NURSE Hypothyroidism, unspecified type PAP AND HIGH RISK HPV, REFLEX TO GENOTYPING Routine 02/14/2024 9:42 AM ER NURSE Well woman exam HIGH RISK HPV DNA DETECTION WITH GENOTYPING Routine 02/14/2024 9:42 AM ER NURSE Well woman exam PORTABLE/HOME SLEEP STUDY Routine 01/31/2024 10:00 PM ER NURSE Snoring Hypersomnia Class 2 obesity due to excess calories with body mass index (BMI) of 38.0 to 38.9 in adult, unspecified whether serious comorbidity present TSH Routine 01/23/2024 8:52 PM ER NURSE Hypothyroidism, unspecified type T4, FREE Routine 01/23/2024 8:52 PM ER NURSE Hypothyroidism, unspecified type TSH Routine 01/01/2024 9:27 AM ER NURSE Hypothyroidism, unspecified type T4, FREE Routine 01/01/2024 9:27 AM ER NURSE Hypothyroidism, unspecified type TSH Routine 12/14/2023 11:15 AM ER NURSE Hypothyroidism, unspecified type T4, FREE Routine 12/14/2023 11:15 AM ER NURSE Hypothyroidism, unspecified type HEPATITIS C ANTIBODY Routine 01/19/2023 7:31 AM ER NURSE Screen for STD (sexually transmitted disease) from Last 3 Months or Most Recently Relevant to Health Maintenance Results * TSH (02/26/2024 10:55 AM ER NURSE) Thyroid Stimulating Hormone 0.56 0.30 - 4.20 mcIUnit/mL Blood 02/26/2024 10:5 5 AM ER NURSE 02/26/2024 2:42 PM ER NURSE us Stephani Gallego MD LAB BLOOD ORDERABLES Final Resu lt Performing Organization Address [facility] de Phone Number LIMA [phone] [address]izondo [place] [address] * T4, free (02/26/2024 10:55 AM ER NURSE) Pathologist [facility] Free T4 1.21 0.90 - 1.70 ng/dL Blood 02/26/2024 10:5 5 AM ER NURSE 02/26/2024 2:42 PM ER NURSE us Stephani Gallego MD LAB BLOOD ORDERABLES Final Resu lt Performing Organization Address [facility] Co de Phone Number LIMA EDGAR [address] [address]ondo [place] [employer] [place] [address] * High Risk HPV DNA Detection with Genotyping (Molecular component) (02/14/2024 9:42 AM ER NURSE) Pathologist [facility] HPV HR [address] [facility] Comment:Testing performed by : [facility], [address] [place]., [address] HPV HR 18 Not Detected Not Detected LIMA SANCHEZ Comment:Testing performed by : [facility], [address] [place]., [address] HPV HR Non 16/18 Not Detected Not Detected LIMA SANCHEZ Comment: Interpretive Data Nucleic acid amplification for detection of high-risk Human Papilloma virus (HPV) is performed by the María Job 6800 HPV test. ??This assay specifically detects HPV-16 and HPV-18 genotypes. ??The following HPV genotypes are detected as high-risk HPV: ?? HPV-31, 33, 35, ,39, 45, 51, 52, 56, 58, 59, 66, and 68. ??This assay has been approved by the [place] Food and Drug Administration for detection of HPV in cervical specimens collected by a physician using an endocervical brush/spatula or cervical broom and placed in the ThinPrep Pap Test PreservCyt collection containers. ??The performance characteristics of this test have been verified by the [facility] Molecular Infectious Disease laboratory. Correlate with separately reported cytology results, as applicable. Interpretive data last revised 22 Testing performed by: [facility], [address] [place]., [address] Endocervical 02/14/2024 9:42 AM ER NURSE 02/18/2024 8:43 AM ER NURSE Narrative LIMA SANCHEZ - 02/19/2024 4:53 AM ER NURSE Clinical history and diagnosis->screening Testing type->Screening Last menstrual period (date if known)->02/04/24 us Simi Bess MD LAB BODY FLUIDS AND STOOL S ORDERABLES Final Result LIMA SANCHEZ [address] [facility] Department [place] [address] [facility] * Pap and High Risk HPV and Genotyping (Cytology Component) (02/14/2024 9:42 AM ER NURSE) Thin prep (Pap test) 02/14/2024 9:42 AM ER NURSE 02/15/2024 1:40 PM ER NURSE Narrative PATHOLOGY [facility] - 02/25/2024 8:29 AM ER NURSE EPIC results best viewed via link to PDF [facility] [place] [address] Note to Patients: This report may contain a detailed description of human tissue sent by a health care provider to the laboratory for pathologic evaluation. The content of this report is essential for diagnosis and may provide important critical findings. This information may be unfamiliar to patients to review without a medical professional present. It is advised that the patient review this report in the presence of a health care provider who can answer questions and explain the details. CYTOPATHOLOGY REPORT FINAL Patient Name: ??ROMANA WHITE Gender: ??F : ??1985 (Age: 38) Address: ??[address] [place] [address] ??[phone] Hospital #: ??[id number] Service: ??DEFAULT Location: ?? Patient Type: ??[facility] SPECIMEN Taken: ??02/14/2024 Received: ??02/15/2024 Accessioned: ??02/15/2024 Reported: ??02/25/2024 Physician(s): ??Simi Bess M.D. ?? FINAL INTERPRETATION SOURCE OF SPECIMEN ?Liquid based Thin Prep pap with HPV: STATEMENT OF ADEQUACY ?- Satisfactory for evaluation ?- Endocervical cells/transformation zone sample present ? GENERAL CATEGORIZATION: ?- Negative for squamous intraepithelial lesion or malignancy ?- Acute inflammation present ? Comments (Normal-Negative for High Risk HPV) HPV HR 16- Not detected HPV HR 18-Not detected HPV HR non 16/18- Not detected Interpretive Data Nucleic acid amplification for detection of high-risk Human Papilloma virus (HPV) is performed by the María Job 6800 HPV test. This assay specifically detects HPV- 16 and HPV-18 genotypes. The following HPV genotypes are detected as high-risk HPV: HPV-31, 33, 35, 39, 45, 51, 52, 56, 58, 59, 66, and 68. This assay has been approved by the [place] Food and Drug Administration for detection of HPV in cervical specimens collected by a physician using an endocervical brush/spatula or cervical broom and placed in the ThinPrep Pap Test PreservCyt collection containers. The performance characteristics of this test have been verified by the [facility] Molecular Infectious Disease laboratory. Correlate with reported cytology results, as applicable. Interpretive data last revised 22 This specimen has been rescreened in accordance with this laboratory's Vamp Creaser Program. [facility] [place]02/25/2024 08:29 CHARLY Newell MS(ASCP)PA Report Electronically Reviewed and Signed Out By CHARLY Dick (ASCP) 02/25/2024 08:29:53 Cervicovaginal Cytology (Pap Test) Disclaimer: The Pap test is a screening test used to detect cervical cancer and its precursors; it is not a diagnostic procedure. False negative and false positive results do occur. Pap test results should be interpreted in the context of pertinent clinical information and biopsy results as indicated. [facility] Clinical Laboratory Improvement Amendments (CLIA) mandate that cytologic and histologic results be correlated for laboratory quality assurance monitor final & improvement standards. ??FOR ALL HIGH-GRADE CASES we request submission of follow-up histological material and/or reports that have not been previously provided so that we may fulfill said required standards. ?? Gross Description A. ??Liquid based Thin Prep pap with HPV: ??Cervical/vaginal - Screening ThinPrep Clinical Diagnosis and History Last Menstrual Period: 02/04/24 The patient is a 38 year old female with screening. Report Images and scanned documents, if included only viewable in PDF version The performance characteristics of some immunohistochemical stains, in-situ hybridization and fluorescence in-situ hybridization tests and immunophenotyping by flow cytometry cited in this report (if any) were determined by the Surgical Pathology Department at [facility] as part of an ongoing quality cloth tester program and in compliance with federally mandated regulations drawn from the Clinical Laboratory Improvement Act of 1988 (CLIA '88). ??Some of these tests rely on the use of analyte specific reagents and are subject to specific labeling requirements by the [place] Food and Drug Administration. ??Such diagnostic tests may only be performed in a facility that is certified by the Department of Health and Human Services as a high complexity laboratory under CLIA '88. ??The FDA has determined that such clearance or approval is not necessary. ??This test is used for clinical purposes. ??It should not be regarded as investigational or for research. ??Nevertheless, federal rules concerning the medical use of analyte specific reagents require that the following disclaimer be attached to the report: This test was developed and its performance characteristics determined by the Surgical Pathology Department of [facility]. ??It has not been cleared or approved by the [place]. S. Food and Drug Administration. Simi Bess MD LAB CYTOLOGY ORDERABLES F inal Result Performing Organization Address [facility] [facility] Co de Phone Number PATHOLOGY [facility] * PORTABLE/HOME SLEEP STUDY (01/31/2024 10:00 PM ER NURSE) Narrative Rupesh Hernandez MD - 01/31/2024 10:00 PM ER NURSE Rupesh Hernandez MD ? 02/14/2024 ??4:41 PM Portable/Home Sleep Study Date/Time: 01/31/2024 10:00 PM Performed by: Justus Wiggins PA Authorized by: Justus Wiggins PA ?? [facility] ORDERABLES Fin al Result * TSH (01/23/2024 8:52 PM ER NURSE) Thyroid Stimulating Hormone 1.16 0.30 - 4.20 mcIUnit/mL Blood 01/23/2024 8:52 PM ER NURSE 01/23/2024 8:52 PM ER NURSE Stephani Gallego MD LAB BLOOD ORDERABLES Final Resu lt LIMA [address] Marce Elizondo [place] [address] * T4, free (01/23/2024 8:52 PM ER NURSE) Free T4 1.28 0.90 - 1.70 ng/dL Blood 01/23/2024 8:52 PM ER NURSE 01/23/2024 8:52 PM ER NURSE Result Nic Gallego MD LAB BLOOD ORDERABLES Final Resu lt Performing Organization Address [facility] Co de Phone Number LIMA [phone] [address] [facility] [place] [address] * TSH (01/01/2024 9:27 AM ER NURSE) Thyroid Stimulating Hormone 1.14 0.30 - 4.20 mcIUnit/mL Blood 01/01/2024 9:27 AM ER NURSE 01/01/2024 7:29 PM ER NURSE us Stephani Gallego MD LAB BLOOD ORDERABLES Final Resu lt Performing Organization Address [facility] Co de Phone Number LIMA [phone] [address] [facility] [place] [address] * T4, free (01/01/2024 9:27 AM ER NURSE) Free T4 1.21 0.90 - 1.70 ng/dL Blood 01/01/2024 9:27 AM ER NURSE 01/01/2024 7:29 PM ER NURSE us Stephani Gallego MD LAB BLOOD ORDERABLES Final Resu lt Performing Organization Address [facility] de Phone Number LIMA [phone] [address] [facility] [place] [address] * TSH (12/14/2023 11:15 AM ER NURSE) Thyroid Stimulating Hormone 0.53 0.30 - 4.20 mcIUnit/mL Blood 12/14/2023 11:1 5 AM ER NURSE 12/14/2023 3:00 PM ER NURSE us Stephani Gallego MD LAB BLOOD ORDERABLES Final Resu lt Performing Organization Address City/[facility]/ZIP Co de Phone Number LIMA [address] [address] [facility] [place] [address] * T4, free (12/14/2023 11:15 AM ER NURSE) Free T4 1.17 0.90 - 1.70 ng/dL Blood 12/14/2023 11:1 5 AM ER NURSE 12/14/2023 3:00 PM ER NURSE Stephani Gallego MD LAB BLOOD ORDERABLES Final Resu lt Performing Organization Address [facility] Co de Phone Number LIMA [phone] [address] [facility] [place] [address] * Hepatitis C antibody Blood (01/19/2023 7:31 AM ER NURSE) Hep C Ab Nonreactive Nonreactive [facility] Comment:Antibodies to HCV no t detected. Does NOT exclude the possibility of recent exposure to HCV. Current interpretive data was last revised on 21 Blood 01/19/2023 7:31 AM ER NURSE 01/19/2023 6:36 PM ER NURSE Ludy Edwards MD LAB MICROBIOLOGY - GENERAL OR DERABLES Final Result Performing Organization Address [facility] Co de Phone Number [facility] Department [place] [address] from Last 3 Months or Most Recently Relevant to Health Maintenance Insurance [place] [employer] [employer] [place] [place] Advance Directives For more information, please contact: [phone] * Full Code (Latest Code Status on File) Date Activated Date Inactivated Comments 05/01/2022 7:11 AM 05/02/2022 5:10 AM Care Teams Lens Generator Relationship Specialty Start Date End Date Andrea Peña MD [address] [place] [id number] PCP - General 01/15/17
--- OUTSIDE RECORDS SUMMARY | 2024-02-28 16:35 | XMS_ITS | Encounter Summary ---
Author Organization [facility] Address [address] [place] [address] Care Team Providers Care Plc Technician Name Role Phone Andrea Peña MD Primary Care Provider [phone] Encounter Details Date Type Department Care Team (Late st Contact Info) Description 12/09/2019 Lab Requisition [facility] Care DermPath Lab [address] [place] [address] Nalini Fox MD [address] [place] [address] Social History Tobacco Use Types Packs/Day Years Used Date Smoking Tobacco: Never Assessed Sex and Gender Information Value Date Recorded Sex Assigned at Not on file Gender Identity Not on file Sexual Orientation Not on file documented as of this encounter Plan of Treatment Not on file documented as of this encounter Procedures Procedure Name Priority Date/Time Associated Diagnosis Comments DERMATOPATHOLOGY Routine 12/08/2019 12:0 0 AM LETTUCE TRIMMER documented in this encounter Results * DERMATOPATHOLOGY (12/08/2019 12:00 AM LETTUCE TRIMMER) Case Report Dermatopathology Report ? Case: [id number] ? Authorizing Provider: ??Nalini Fox MD ?Collected: ? 12/08/2019 12:00 AM ? Ordering Location: ? [facility] DermPath Lab ?Received: ?12/09/2019 07:07 AM ? Pathologist: ? Pavithra Grossman MD ? Specimen: ?Skin, right knee ? 0 12:06 PM [facility] DERMATOPATHOLOGY LABORATORY Final Diagnosis Specimen A. SKIN, right knee: COMPOUND MELANOCYTIC NEVUS (D22.71) 0 12:06 PM [facility] DERMATOPATHOLOGY LABORATORY Clinical History R/O nevus vs MM, irregular border, brown papule. 0 12:06 PM [facility] DERMATOPATHOLOGY LABORATORY Gross Description Specimen A: Received is one formalin filled container labeled with the patient's name and designated right knee. The specimen consists of a shave measuring [id number]. Jar 0. 0 12:06 PM [facility] DERMATOPATHOLOGY LABORATORY Microscopic Description Specimen A. SKIN, right knee: There are nests of melanocytes at the dermal-epidermal junction and within the dermis. 0 12:06 PM [facility] DERMATOPATHOLOGY LABORATORY Disclaimer An external and internal positive and negative controls are appropriate for the histochemical, immunohistochemical and immunofluorescence stain(s) in this case (if any), except where stated explicitly. The performance characteristics of the stain(s) cited in this report were developed and its performance characteristic determined by the Dermatopathology Laboratory at [facility], directed by Dr. M. Neelam Webster. These tests need not be, and therefore are not, approved by the [place] Food and Drug Administration. The tests are used for clinical purposes. Billing Codes Specimen Charges Stain Charges 85970 1 0 12:06 PM LETTUCE TRIMMER DERMATOPATHOLOGY LABORATORY Embedded Images 0 12:06 PM LETTUCE TRIMMER DERMATOPATHOLOGY LABORATORY Pathology/Cytolog y TISSUE SPECIMEN FROM SKIN / Unknown 12/08/2019 12/09/2019 7:07 AM LETTUCE TRIMMER Nalini Fox MD LAB - PATHOLOGY/CYTO LOGY ORDERABLES DERMATOPATHOLOGY LABORATORY [facility] - Department of Dermatology [facility] Medicine [address] [place] [address], [address] [phone] documented in this encounter Visit Diagnoses Not on filedocumented in this encounter Care Teams Plc Technician Relationship Specialty Start Date End Date Andrea Peña MD PCP - General 07/13/15 documented as of this encounter
--- OUTSIDE RECORDS SUMMARY | 2024-02-28 16:35 | XMS_ITS | Patient Health Summary ---
Author Organization [facility] Address [address] [place] [address] Care Team Providers Care Project Controls Specialist Name Role Phone Andrea Peña MD Primary Care Provider [phone] Note from [facility],non-owned Affiliates and Associated Physician Practices is amultiple site organization consisting of ambulatory clinics and hospital sitesin [place], [place], [place] and [place]. This disclosure is being madepursuant to the Care Everywhere program and may not contain all information available regarding this patient. Last updated 17.[facility] Allergies * Amoxicillin-Pot Clavulanate(Nausea) -Low Criticality * Morphine(Rash) -Medium Criticality Medications * Be aware that medications may not be up to date on this document. Alwaysverify current medications with the patient. * Vit-Fe Fumarate-FA ( VITAMINS) 28-0.8 MG TABS(Started 08/23/2015) Take by mouth. * valACYclovir (VALTREX) 500 MG tablet(Started 07/07/2017) Take 500 mg by mouth once daily 3 refills left * valACYclovir (VALTREX) 1 GM tablet(Started 07/22/2016) TAKE 2 TABLETS BY MOUTH TWICE DAILY Active Problems Problem Noted Date Diagnosed Date Vulvar vestibulitis 08/23/2015 Pelvic floor dysfunction 08/23/2015 Social History Tobacco Use Types Packs/Day Years Used Date Smoking Tobacco: Never Smokeless Tobacco: Never Alcohol Use Standard Drinks/Week Comments Yes 0 (1 standard drink = 0.6 oz pur e alcohol) Sex and Gender Information Value Date Recorded Sex Assigned at Not on file Gender Identity Not on file Sexual Orientation Not on file Last Filed Vital Signs Vital Sign Reading Time Taken Comments Blood Pressure 114/78 10/28/2018 3:07 PM CDT Pulse - - Temperature - - Respiratory Rate - - Oxygen Saturation - - Inhaled Oxygen Concentration - - Weight 79.8 kg (176 lb) 10/28/2018 3:07 PM CDT Height 167.6 cm (5' 6 ) 10/28/2018 3:07 PM CDT Body Mass Index 28.41 10/28/2018 3:07 PM CDT Procedures * DERMATOPATHOLOGY(Performed 07/18/2023) * DERMATOPATHOLOGY(Performed 06/08/2021) * DERMATOPATHOLOGY(Performed 05/25/2021) * DERMATOPATHOLOGY(Performed 12/08/2019) * DERMATOPATHOLOGY(Performed 12/21/2016) * CULTURE YEAST WITH DIRECT FLUORESCENT LUCIANO(Performed 02/21/2016) * CULTURE YEAST WITH DIRECT FLUORESCENT LUCIANO(Performed 09/07/2015) * PH FLUID - POCT (AMB) [facility](Performed 08/23/2015) * WET PREP - POINT OF CARE (AMB) [facility](Performed 08/23/2015) * FUNGUS LUCIANO - POINT OF CARE (AMB) [facility](Performed 08/23/2015) * DERMATOPATHOLOGY(Performed 11/04/2012) Results * DERMATOPATHOLOGY (07/18/2023 1:36 PM CDT) Only the most recent of6 resultswithin the time period is included. Case Report Dermatopathology Report ? Case: [id number] ? Authorizing Provider: ??Nalini Fox MD ?Collected: ? 07/18/2023 01:36 PM ? Ordering Location: ? [facility] - ??Received: ?07/19/2023 01:56 PM ? DermPath Lab ? Pathologist: ? Denisa Sunshine MD ? Specimen: ?Skin, left back ? 4 3:53 PM CDT DERMATOPATHOLOGY LABORATORY Final Diagnosis Specimen A. SKIN, left back: INTRADERMAL MELANOCYTIC NEVUS (D22.5) 4 3:53 PM T DERMATOPATHOLOGY LABORATORY Clinical History Nevus irregular irritated [...] characteristic determined by the Dermatopathology Laboratory at [facility], directed by Dr. Cyndie Webster. These tests need not be, and therefore are not, approved by the [place] Food and Drug Administration. The tests are used for clinical purposes. Billing Codes Specimen Charges Stain Charges 18686 1 4 3:53 PM CDT DERMATOPATHOLOGY LABORATORY Embedded Images 4 3:53 PM CDT DERMATOPATHOLOGY LABORATORY Pathology/Cytolo gy TISSUE SPECIMEN FROM SKIN / Unknown 07/18/2023 1:36 PM CDT 07/19/2023 1:56 PM CDT Nalini Fox MD LAB - PATHOLOGY/CYTO LOGY ORDERABLES DERMATOPATHOLOGY LABORATORY [facility] - Department of Dermatology [address] [phone] * CULTURE YEAST WITH DIRECT FLUORESCENT LUCIANO (02/21/2016) Only the most recent of2 resultswithin the time period is included. Smear SEE NOTE [facility] ([facility]) Comment: ??CULTURE, YEAST, W/DIRECT FLUORESCENT LUCIANO ?MICRO NUMBER: ?[id number] ??TEST STATUS: ? FINAL ??SPECIMEN SOURCE: ?? VAGINAL ??SPECIMEN QUALITY: ??ADEQUATE ??SMEAR: ? No yeast seen ??RESULT: ?No fungal growth at 2 Weeks Test Performed at: [facility] ??[id number] MALA CABRERA MD Vaginal swab (specimen) 02/21/2016 02/22/2016 12:50 AM SECRETARY RECEPTIONIST Narrative [facility] ([facility]) - 03/07/2016 12:00 PM SECRETARY RECEPTIONIST Specimen Type->Vaginal swab Nani Rubio MD LAB - MICROBIOLOGY ORDERABLES Performing Organization Address City/[facility]/ZIP Co de Phone Number [facility]) * PH FLUID - POCT (AMB) [facility] (08/23/2015) pH Vaginal 4.0 [facility] Vaginal swab (specimen) 08/23/2015 Nani Rubio MD LAB - POINT OF CAR E ORDERABLES [facility] * WET PREP - POINT OF CARE (AMB) [facility] (08/23/2015) pH Wet Prep 4.0 [facility] Yeast Wet Prep neg [facility] Trichomonas Wet Prep neg [facility] Bacteria Wet Prep neg [facility] Whiff Test neg [facility] 08/23/2015 Nani Rubio MD LAB - POINT OF CAR E ORDERABLES Performing Organization Address City/[facility]/ZIP Co de Phone Number [facility] * FUNGUS LUCIANO - POINT OF CARE (AMB) [facility] (08/23/2015) LUCIAON Prep neg [facility] Fluid specimen (specimen) 08/23/2015 Nani Rubio MD LAB - POINT OF CAR E ORDERABLES [facility] Care Teams Project Controls Specialist Relationship Specialty Start Date End Date Andrea Peña MD PCP - General 07/13/15
--- OUTSIDE RECORDS SUMMARY | 2024-02-28 16:35 | XMS_ITS | Clinical Summary ---
Author Organization [facility] Address [address] [place] [address] Care Team Providers Care Reading Teacher Name Role Phone Andrea Peña MD Primary Care Provider [phone] Source Comments [facility],non-owned Affiliates and Associated Physician Practices is amultiple site organization consisting of ambulatory clinics and hospital sitesin [place], [place], [place] and [place]. This disclosure is being madepursuant to the Care Everywhere program and may not contain all information available regarding this patient. Last updated 17.[facility] Allergies Active Allergy Reactions Criticality Noted Date Comments Amoxicillin-Pot Clavulanate Nausea Low 08/23/19 16 Morphine Rash Medium 08/23/2015 Medications * Be aware that medications may not be up to date on this document. Alwaysverify current medications with the patient. Medication Sig Dispensed Refills Start Date End Date Status Vit-Fe Fumarate-FA ( VITAMINS) 28-0.8 MG TABS Take by mouth. 08/23/2015 Active valACYclovir (VALTREX) 500 MG tablet Take 500 mg by mouth once daily 3 07/07/2017 Active valACYclovir (VALTREX) 1 GM tablet TAKE 2 TABLETS BY MOUTH TWICE DAILY 07/22/2016 Active Active Problems Problem Noted Date Diagnosed Date Vulvar vestibulitis 08/23/2015 Pelvic floor dysfunction 08/23/2015 Family History Medical History Relation Name Comments Diabetes Maternal Grandfather Heart Disease Maternal Grandfather Osteoporosis Maternal Grandmother Diabetes Mother Elevated Lipids Mother Heart Disease Mother Hypertension Mother Relation Name Status Comments Maternal Grandfather Maternal Grandmother Mother Social History Tobacco Use Types Packs/Day Years [...] Mass Index 28.41 10/28/2018 3:07 PM CDT Plan of Treatment Health Maintenance Due Date Last Done Comments PAP SMEAR 1984 HIV SCREENING 05/01/1999 HEPATITIS C SCREENING 04/26/2002 DTAP/TDAP/TD VACCINES (1 - Tdap) 05/01/2003 HEPATITIS B VACCINE (1 of 3 - 19+ 3-dose series) 05/01/2003 COVID-19 VACCINE ( - 2023-2 5 season) 2023 INFLUENZA VACCINE (#1) 2023 DEPRESSION SCREENING 02/06/2024 ZOSTER VACCINE (1 of 2) 2034 HIB VACCINE Aged Out No longer eligi ble based on patient's age to complete this topic HPV VACCINE Aged Out No longer eligi ble based on patient's age to complete this topic MENINGOCOCCAL (Group B) VACCINE Aged Out No longer eligible based on patient's age to complete this topic MENINGOCOCCAL VACCINE Aged Out No hong heather eligible based on patient's age to complete this topic PNEUMOCOCCAL VACCINE Aged Out No long er eligible based on patient's age to complete this topic Care Teams Reading Teacher Relationship Specialty Start Date End Date Andrea Peña MD PCP - General 07/13/15
--- OUTSIDE RECORDS SUMMARY | 2024-02-28 16:35 | XMS_ITS | Encounter Summary ---
Author Organization [facility] Healthcare Address [address] [place] [address] Care Team Providers Care Machinery Engineer Name Role Phone Andrea Peña MD Primary Care Provider [phone] Encounter Details Date Type Department Care Team (Late st Contact Info) Description 09/04/2019 Telephone [facility] Radiology at [facility] [address] [place] [address] Clover Tran RDTN Social History Tobacco Use Types Packs/Day Years Used Date Smoking Tobacco: Never Smokeless Tobacco: Never Alcohol Use Standard Drinks/Week Comments Yes 0 (1 standard drink = 0.6 oz pur e alcohol) Comments No Sex and Gender Information Value Date Recorded Sex Assigned at Not on file Legal Sex Female 5:24 AM WARPER CREELER Gender Identity Female 10/03/2021 7:59 AM CDT Sexual Orientation Straight 07/29/2020 7: 16 AM CDT documented as of this encounter Plan of Treatment Not on file documented as of this encounter Visit Diagnoses Not on filedocumented in this encounter Care Teams Machinery Engineer Relationship Specialty Start Date End Date Andrea Peña MD [address] [place] [id number] PCP - General 01/15/17 documented as of this encounter
--- OUTSIDE RECORDS SUMMARY | 2024-02-28 16:35 | XMS_ITS | Referral Summary ---
Author Organization [facility] Address [address] [place] [address] Care Team Providers Care Ultrasound Spec Name Role Phone Adnrea Peña MD Primary Care Provider [phone] Encounters Date Type Department Care Team Description 02/26/2024 10:55 AM MANAGER SECURITY AND SAFETY - 02/26/2024 11:59 PM MANAGER SECURITY AND SAFETY Hospital Encounter [address] [address] Hypothyroidism, unspecified type Discharge Disposition: Discharge to home or self care 02/26/2024 10:45 AM MANAGER SECURITY AND SAFETY Lab [facility] Outpatient Lab at [address] [phone] Hypothyroidism (Primary Dx) 02/19/2024 Orders Only [facility] Neuro Sleep [address] 6th [address] [place] [address] Justus Wiggins PA Snoring (Primary Dx); Hypersomnia 02/14/2024 11:14 AM MANAGER SECURITY AND SAFETY - 02/14/2024 11:59 PM MANAGER SECURITY AND SAFETY Hospital Encounter [facility] [address] [place] [address] Well woman exam Discharge Disposition: Discharge to home or self care 02/14/2024 9:00 AM MANAGER SECURITY AND SAFETY Office Visit [facility] Obstetrical Gynecology [facility] [facility] [address] [place] [phone] Simi Bess MD Well woman exam (Primary Dx) 01/31/2024 10:00 AM MANAGER SECURITY AND SAFETY Procedure visit [facility] Neuro Sleep [address] [place] [phone] Sleep disorder (Primary Dx); Snoring; Hypersomnia; Class 2 obesity due to excess calories with body mass index (BMI) of 38.0 to 38.9 in adult, unspecified whether serious comorbidity present 01/23/2024 8:37 PM MANAGER SECURITY AND SAFETY - 01/23/2024 11:59 PM MANAGER SECURITY AND SAFETY Hospital Encounter [facility] [id number] [place] [address] Hypothyroidism, unspecified type Discharge Disposition: Discharge to home or self care 01/23/2024 12:15 PM MANAGER SECURITY AND SAFETY Lab [facility] Outpatient Lab at [address] [address] Hypothyroidism (Primary Dx) 01/21/2024 11:00 AM MANAGER SECURITY AND SAFETY Office Visit [facility] Neuro Sleep [address] [place] [phone] Justus Wiggins PA Snoring (Primary Dx); Hypersomnia; Class 2 obesity due to excess calories with body mass index (BMI) of 38.0 to 38.9 in adult, unspecified whether serious comorbidity present 01/02/2024 2:40 PM MANAGER SECURITY AND SAFETY Telemedicine [facility] Endocrinology Metabolism and Lipid [address] [address] 2nd [address] [place] [address] Stephani Gallego MD Hypothyroidism, unspecified type (Primary Dx) 01/01/2024 9:27 AM MANAGER SECURITY AND SAFETY - 01/01/2024 11:59 PM MANAGER SECURITY AND SAFETY Hospital Encounter [address] [address] Hypothyroidism, unspecified type Discharge Disposition: Discharge to home or self care 01/01/2024 9:30 AM MANAGER SECURITY AND SAFETY Lab [facility] Outpatient Lab at [address] [address] Hypothyroidism (Primary Dx) 12/28/2023 3:00 PM MANAGER SECURITY AND SAFETY Telemedicine [facility] Obstetrical Gynecology [address] [place] [address] [place] [phone] Simi Bess MD Hydrosalpinx (Primary Dx) 12/25/2023 3:20 PM MANAGER SECURITY AND SAFETY Office Visit [facility]) - [facility] ENT [address] [facility] Medical Office Building [address] [place] [phone] Tori Riojas NP Excessive cerumen in both ear canals (Primary Dx) 12/17/2023 Telephone [facility] Obstetrical Gynecology [address] [facility] [address] [place] [address] Simi Bess MD 12/14/2023 4:49 PM MANAGER SECURITY AND SAFETY - 12/14/2023 11:59 PM MANAGER SECURITY AND SAFETY Hospital Encounter [facility] [address] [place] [address] Hypothyroidism, unspecified type Discharge Disposition: Discharge to home or self care 12/14/2023 11:00 AM MANAGER SECURITY AND SAFETY Lab [facility] Outpatient Lab at [address] [address] Hypothyroidism (Primary Dx) 12/14/2023 4:09 AM MANAGER SECURITY AND SAFETY - 12/14/2023 11:59 PM MANAGER SECURITY AND SAFETY Hospital Encounter [facility] [address] [place] [address] Discharge Disposition: Discharge to home or self care 12/05/2023 Telephone [place] [facility] ([facility]) - [facility] ENT [address] [facility] 11th [place] [address] [place] [phone] Lamar Flores MS from Last 3 Months Allergies Active Allergy Reactions Criticality Noted Date [...] as directed by 3.24 mL 2 03/01/19 Active Additional Information Patient not taking.Reported on 02/14/2024 menotropins (Menopur) 75 unit recon soln Inject 75 to 300 units SQ daily as directed by 30 each 2 03/01/19 Active Additional Information Patient not taking.Reported on 02/14/2024 azithromycin (ZITHROMAX) 500 mg tabletIndication s:Prophylaxis, Medical Take both tabs po at the same time with food as directed by MD 2 tablet 1 03/01/19 Active Additional Information Patient not taking.Reported on 02/14/2024 folic acid (FOLVITE) 800 mcg tablet Take 1 tablet (800 mcg total) by mouth daily 30 tablet 11 05/28/19 24 025 Active Additional Information Patient not taking.Reported on 02/14/2024 vit 25-tpux-keero-dh a 27mg iron- 800 mcg-250 mg capsule Take 1 tablet by mouth daily 30 capsule 11 05/28/19 Active Additional Information Patient not taking.Reported on 02/14/2024 Tirosint 112 mcg capsuleIndicatio ns:Hypothyroidis m, unspecified type Take one tablet by itself, with water, 30 minutes prior to breakfast. Take 2 tablets one day a week (8 total) 100 capsule 3 08/22/19 Active estradioL (VIVELLE-DOT) 0.1 mg/[address] 2 patches on the skin 09/21/19 Active needle, disp, 18 G (BD Regular Bevel Tintah) 18 gauge x 1 1/2 needle 09/20/19 Active needle, disp, 23 gauge 23 gauge x 1 1/2 needle 09/20/19 Active progesterone 50 mg/mL injection Inject 1 mL (50 mg total) into the muscle as instructed daily 09/20/19 Active syringe, disposable, 3 mL syringe 09/20/19 Active Synthroid 125 mcg tablet Take 1 tablet (125 mcg total) by mouth daily for 1 day Lot [id number] exp 10/24/23 14 tablet 10/03/19 Active PNV-DHA 27 mg iron-1 mg -300 mg capsule TAKE 1 CAPSULE BY MOUTH EVERY DAY 90 capsule 2 12/20/20 24 Active Clomid 50 mg tablet 02/12/19 25 Active doxycycline hyclate 100 mg capsule Take 1 tab PO BID x 5 days. Start day prior to scheduled HSG. 12/13/19 24 Active ganirelix 250 mcg/0.5 mL syringe Inject 250 mcg under the skin daily 12/13/19 24 Active letrozole (FEMARA) 2.5 mg tablet Take [...] 12/15/2020 Assessment & Plan (12/15/2020 10:58 PM MANAGER SECURITY AND SAFETY): She is interested in weight loss and restarted Weight Watcher's recently Reviewed lifestyle modifications She is not interested in pharmacotherapy at this time Endometrial polyp 09/22/2019 Low grade squamous intraepit h lesion on cytologic smear cervix (lgsil) 08/19/2019 Hypothyroidism 06/19/2018 Assessment & Plan (02/18/2023 5:26 PM MANAGER SECURITY AND SAFETY): TSH is at goal Continue Tirosint Repeat [...] away Assessment & Plan (12/15/2020 10:57 PM MANAGER SECURITY AND SAFETY): Continue Synthroid 75 mcg once daily TSH [...] pain 07/12/2015 Recurrent urinary tract infection 07/12/2015 Immunizations Name Administration Dates Next Due DTP 08/16/1989, 6,1984,09/02,1984 Influenza, Quadrivalent, Spl it, Preservative Free, Intramuscular 11/19/2019 Influenza, Unspecified 11/15/2020 MMR 02/17/2022,09/17/1992,08/04/1985 OPV 08/16/1989, 6,1984,09/02,1984 Pfizer SARS-CoV-2 Monovalent Vaccination (12+ Yrs) PURPLE 01/09/2021,05/29/2020,05/08/2020 Tdap 12/22/2017 Social History Tobacco Use Types Packs/Day Years [...] on file Legal Sex Female 5:24 AM MANAGER SECURITY AND SAFETY Gender Identity Female 10/03/2021 7:59 AM CDT Sexual Orientation Straight 07/29/2020 7: 16 AM CDT Last Filed Vital Signs Vital Sign Reading Time Taken Comments Blood Pressure 104/60 02/14/2024 8:57 AM MANAGER SECURITY AND SAFETY Pulse 65 01/21/2024 10:46 AM MANAGER SECURITY AND SAFETY Temperature 36.3 ??C (97.4 ??F) 01/21/2024 10:[address] Respiratory Rate 19 05/01/2022 9:50 AM CDT Oxygen Saturation 99% 01/21/2024 10:46 AM MANAGER SECURITY AND SAFETY Inhaled Oxygen Concentration - - Weight 108.4 kg (239 lb) 02/14/2024 8:57 AM MANAGER SECURITY AND SAFETY Height 167.6 cm (5' 6 ) 02/14/2024 8:57 AM MANAGER SECURITY AND SAFETY Body Mass Index 38.58 02/14/2024 8:57 AM MANAGER SECURITY AND SAFETY Plan of Treatment Not on file Procedures Procedure Name Priority Date/Time Associated Diagnosis Comments TSH Routine 02/26/2024 10:55 AM MANAGER SECURITY AND SAFETY Hypothyroidism, unspecified type T4, FREE Routine 02/26/2024 10:55 AM MANAGER SECURITY AND SAFETY Hypothyroidism, unspecified type PAP AND HIGH RISK HPV, REFLEX TO GENOTYPING Routine 02/14/2024 9:42 AM MANAGER SECURITY AND SAFETY Well woman exam HIGH RISK HPV DNA DETECTION WITH GENOTYPING Routine 02/14/2024 9:42 AM MANAGER SECURITY AND SAFETY Well woman exam PORTABLE/HOME SLEEP STUDY Routine 01/31/2024 10:00 PM MANAGER SECURITY AND SAFETY Snoring Hypersomnia Class 2 obesity due to excess calories with body mass index (BMI) of 38.0 to 38.9 in adult, unspecified whether serious comorbidity present TSH Routine 01/23/2024 8:52 PM MANAGER SECURITY AND SAFETY Hypothyroidism, unspecified type T4, FREE Routine 01/23/2024 8:52 PM MANAGER SECURITY AND SAFETY Hypothyroidism, unspecified type TSH Routine 01/01/2024 9:27 AM MANAGER SECURITY AND SAFETY Hypothyroidism, unspecified type T4, FREE Routine 01/01/2024 9:27 AM MANAGER SECURITY AND SAFETY Hypothyroidism, unspecified type TSH Routine 12/14/2023 11:15 AM MANAGER SECURITY AND SAFETY Hypothyroidism, unspecified type T4, FREE Routine 12/14/2023 11:15 AM MANAGER SECURITY AND SAFETY Hypothyroidism, unspecified type HEPATITIS C ANTIBODY Routine 01/19/2023 7:31 AM MANAGER SECURITY AND SAFETY Screen for STD (sexually transmitted disease) from Last 3 Months or Most Recently Relevant to Health Maintenance Results * TSH (02/26/2024 10:55 AM MANAGER SECURITY AND SAFETY) Thyroid Stimulating Hormone 0.56 0.30 - 4.20 mcIUnit/mL Blood 02/26/2024 10:5 5 AM MANAGER SECURITY AND SAFETY 02/26/2024 2:42 PM MANAGER SECURITY AND SAFETY us Stephani Gallego MD LAB BLOOD ORDERABLES Final Resu lt [place]Z [address] [address] [facility] [place] [address] * T4, free (02/26/2024 10:55 AM MANAGER SECURITY AND SAFETY) Free T4 1.21 0.90 - 1.70 ng/dL Blood 02/26/2024 10:5 5 AM MANAGER SECURITY AND SAFETY 02/26/2024 2:42 PM MANAGER SECURITY AND SAFETY Stephani Gallego MD LAB BLOOD ORDERABLES Final Resu lt Performing Organization Address [facility] de Phone Number [place] [address] [address] [facility] [place] [address] * High Risk HPV DNA Detection with Genotyping (Molecular component) (02/14/2024 9:42 AM MANAGER SECURITY AND SAFETY) Pathologist [facility] HPV HR [address] [facility] Comment:Testing performed by : [facility], [address] [place]., [address] HPV HR 18 Not Detected Not Detected [facility] Comment:Testing performed by : [facility], [address] [place]., [address] HPV HR Non 16/18 Not Detected Not Detected [facility] Comment: Interpretive Data Nucleic acid amplification for [...] this test have been verified by the [facility] Molecular Infectious Disease laboratory. Correlate with separately reported cytology results, as applicable. Interpretive data last revised 22 Testing performed by: [facility], [address] [place]., [address] Endocervical 02/14/2024 9:42 AM MANAGER SECURITY AND SAFETY 02/18/2024 8:43 AM MANAGER SECURITY AND SAFETY Narrative CERNER - 02/19/2024 4:53 AM MANAGER SECURITY AND SAFETY Clinical history and diagnosis->screening Testing type->Screening Last menstrual period (date if known)->02/04/24 Simi Bess MD LAB BODY FLUIDS AND STOOL S ORDERABLES Final Result [facility] [address] [facility] Department [place] [address] [facility] * Pap and High Risk HPV and Genotyping (Cytology Component) (02/14/2024 9:42 AM MANAGER SECURITY AND SAFETY) Thin prep (Pap test) 02/14/2024 9:42 AM MANAGER SECURITY AND SAFETY 02/15/2024 1:40 PM MANAGER SECURITY AND SAFETY Narrative PATHOLOGY [facility] - 02/25/2024 8:29 AM MANAGER SECURITY AND SAFETY EPIC results best viewed via link to PDF [facility] Rosario [facility] Surgical [facility]ology [address] [place], [place] [id number] Note to Patients: This report may contain [...] details. CYTOPATHOLOGY REPORT FINAL Patient Name: ??ROMANA HORNERSenait Gender: ??F : ??1985 (Age: 38) Address: ??[address] [place], [place] ??[address] [facility] #: ??[id number] Service: ??DEFAULT Location: ?? Patient Type: ??[facility] SPECIMEN Taken: ??02/14/2024 Received: ??02/15/2024 Accessioned: ??02/15/2024 [...] this test have been verified by the [facility] Molecular Infectious Disease laboratory. Correlate with reported cytology results, as applicable. Interpretive data last revised 22 This specimen has been rescreened in accordance with this laboratory's Boiler House Supervisor Program. [facility] [place], [place]/02/25/2024 08:29 CHARLY Newell MS(ASCP)PA Report Electronically Reviewed [...] clinical information and biopsy results as indicated. [facility] Clinical Laboratory Improvement Amendments (CLIA) mandate that cytologic and histologic results be correlated for laboratory software quality assurance specialist & improvement standards. ??FOR ALL HIGH-GRADE CASES [...] determined by the Surgical Pathology Department at [facility] as part of an ongoing senior quality assurance engineer program and in compliance with federally mandated [...] determined by the Surgical Pathology Department of [facility]. ??It has not been cleared or approved by the U. S. Food and Drug Administration. Simi Bess MD LAB CYTOLOGY ORDERABLES F inal Result PATHOLOGY [facility] * PORTABLE/HOME SLEEP STUDY (01/31/2024 10:00 PM MANAGER SECURITY AND SAFETY) Narrative Rupesh Hernandez MD - 01/31/2024 10:00 PM MANAGER SECURITY AND SAFETY Rupesh Hernandez MD ? 02/14/2024 ??4:41 PM Portable/Home Sleep Study Date/Time: 01/31/2024 10:00 PM Performed by: Justus Wiggins PA Authorized by: Justus Wiggins PA ?? Justus Wiggins PA SLEEP CENTER ORDERABLES Fin al Result * TSH (01/23/2024 8:52 PM MANAGER SECURITY AND SAFETY) Thyroid Stimulating Hormone 1.16 0.30 - 4.20 mcIUnit/mL Blood 01/23/2024 8:52 PM MANAGER SECURITY AND SAFETY 01/23/2024 8:52 PM MANAGER SECURITY AND SAFETY Stephani Gallego MD LAB BLOOD ORDERABLES Final Resu lt Performing Organization Address [facility] Co de Phone Number [place] [address] [address] [place] [address] * T4, free (01/23/2024 8:52 PM MANAGER SECURITY AND SAFETY) Free T4 1.28 0.90 - 1.70 ng/dL Blood 01/23/2024 8:52 PM MANAGER SECURITY AND SAFETY 01/23/2024 8:52 PM MANAGER SECURITY AND SAFETY Stephani Gallego MD LAB BLOOD ORDERABLES Final Resu lt Performing Organization Address [facility] [place] [address] [address] Department [place] [address] * TSH (01/01/2024 9:27 AM MANAGER SECURITY AND SAFETY) Thyroid Stimulating Hormone 1.14 0.30 - 4.20 mcIUnit/mL Blood 01/01/2024 9:27 AM MANAGER SECURITY AND SAFETY 01/01/2024 7:29 PM MANAGER SECURITY AND SAFETY Stephani Gallego MD LAB BLOOD ORDERABLES Final Resu lt Performing Organization Address City/[facility] Co de Phone Number [place]Z [address] [address] [facility] [place] [address] * T4, free (01/01/2024 9:27 AM MANAGER SECURITY AND SAFETY) Pathologist [facility] Free T4 1.21 0.90 - 1.70 ng/dL Blood 01/01/2024 9:27 AM MANAGER SECURITY AND SAFETY 01/01/2024 7:29 PM MANAGER SECURITY AND SAFETY us Stephani Gallego MD LAB BLOOD ORDERABLES Final Resu lt Performing Organization Address [facility] de Phone Number [place] [address] [address] [facility] [place] [address] * TSH (12/14/2023 11:15 AM MANAGER SECURITY AND SAFETY) Pathologist [facility] Thyroid Stimulating Hormone 0.53 0.30 - 4.20 mcIUnit/mL Blood 12/14/2023 11:1 5 AM MANAGER SECURITY AND SAFETY 12/14/2023 3:00 PM MANAGER SECURITY AND SAFETY us Stephani Gallego MD LAB BLOOD ORDERABLES Final Resu lt Performing Organization Address [facility] de Phone Number [place] [address] [address] [facility] [place] [address] * T4, free (12/14/2023 11:15 AM MANAGER SECURITY AND SAFETY) Pathologist [facility] [place] Free T4 1.17 0.90 - 1.70 ng/dL Blood 12/14/2023 11:1 5 AM MANAGER SECURITY AND SAFETY 12/14/2023 3:00 PM MANAGER SECURITY AND SAFETY us Stephani Gallego MD LAB BLOOD ORDERABLES Final Resu lt Performing Organization Address [facility] [place] [address] [address] [facility] [place] [address] * Hepatitis C antibody Blood (01/19/2023 7:31 AM MANAGER SECURITY AND SAFETY) Pathologist [facility] [place] Hep C Ab Nonreactive Nonreactive [facility] YOU Comment:Antibodies to HCV no t detected. Does NOT exclude the possibility of recent exposure to HCV. Current interpretive data was last revised on 21 Blood 01/19/2023 7:31 AM MANAGER SECURITY AND SAFETY 01/19/2023 6:36 PM MANAGER SECURITY AND SAFETY us Ludy Edwards MD LAB MICROBIOLOGY - GENERAL OR DERABLES Final Result [facility] [address] [facility] Department [place] [address] from Last 3 Months or Most Recently Relevant to Health Maintenance Insurance [place] [employer] [employer] [place] [facility] HMO/PPO Address: [address] [address] [place] [address] [employer] PPO [facility] H[facility]/PPO Address: [address] [address] [place] [address] [employer] PPO [facility] H[facility]/PPO Address: [address] [address] [place] [address] [employer] [place] Advance Directives For more information, please contact: [phone] * Full Code (Latest Code Status on File) Date Activated Date Inactivated Comments 05/01/2022 7:11 AM 05/02/2022 5:10 AM Care Teams Ultrasound Spec Relationship Specialty Start Date End Date Andrea Peña MD [address] [place] [id number] PCP - General 01/15/17
--- OUTSIDE RECORDS SUMMARY | 2024-02-28 16:35 | XMS_ITS | Referral Summary ---
Author Organization [facility] Address [address] [place] [address] Care Team Providers Care Languages And Literature Instructor Name Role Phone Andrea Peña MD Primary Care Provider [phone] Source Comments [facility],non-owned Affiliates and Associated Physician Practices is amultiple site organization consisting of ambulatory clinics and hospital sitesin [place], [place], [place] and [place]. This disclosure is being madepursuant to the Care Everywhere program and may not contain all information available regarding this patient. Last updated 17.[facility] Allergies Active Allergy Reactions Criticality Noted Date [...] 10/28/2018 3:07 PM CDT Plan of Treatment Not on file Care Teams Languages And Literature Instructor Relationship Specialty Start Date End Date Andrea Peña MD PCP - General 07/13/15
--- OUTSIDE RECORDS SUMMARY | 2024-02-28 16:35 | XMS_ITS | Encounter Summary ---
Author Organization [facility] Address [address] [place] [address] Care Team Providers Care Nuclear Medical Tech Name Role Phone Andrea Peña MD Primary Care Provider [phone] Encounter Details Date Type Department Care Team (Late st Contact Info) Description 01/05/2021 Telephone [facility] Radiology at [address] [address] Jacinda Parker RDMS Social History Tobacco Use Types Packs/Day Years Used Date Smoking Tobacco: Never Smokeless Tobacco: Never Alcohol Use Standard Drinks/Week Comments Yes 0 (1 standard drink = 0.6 oz pur e alcohol) Comments No Sex and Gender Information Value Date Recorded Sex Assigned at Not on file Legal Sex Female 5:24 AM BREASTFEEDING PROGRAM COORDINATOR Gender Identity Female 10/03/2021 7:59 AM CDT Sexual Orientation Straight 07/29/2020 7: 16 AM CDT documented as of this encounter Plan of Treatment Not on file documented as of this encounter Visit Diagnoses Not on filedocumented in this encounter Care Teams Nuclear Medical Tech Relationship Specialty Start Date End Date Andrea Peña MD [address] [place] [address] PCP - General 01/15/17 documented as of this encounter
== END 2024-02-26 08:58 | disposition home or self-care (01) ==
LOC: ANHIMG 09:05
PROVIDERS: PCP Family Medicine; Visit Provider Plastic Surgery
DX: G56.21 Lesion of ulnar nerve, right upper limb (principal)
CPT/HCPCS: 73110

== ENCOUNTER 2024-03-13 12:30 | Outpatient (RCR) | payer BC, OTHER, SELFPAY ==
--- NOTE | 2023-12-24 13:16 | OPREHPOC ---
Outpatient Therapy Plan of Care This is a Multidisciplinary Plan of Care that may contain components documented by all disciplines (PT, OT, and ST.) PT Problem 1 PT Problem #1 Knowledge Deficit PT Goal 1 Goal / Goal Update *indep with HEP Target Visit 6 PT Problem 2 PT Problem #2 Impaired Vestibular Syste PT Goal 1 Goal / Goal Update pt not report any dizziness with: 1* supine/sit transfer 2* rolling over in bed 3* in standing, looking up 3x 4* picking something up off floor 5* walking 50' with head movements R/L x 3 each Target Visit 8
--- NOTE | 2023-12-24 13:16 | PTOPEVAL1 ---
Assessment and note entered by Genevieve Nieto PT Evaluation Information Assessment Status Evaluation ICD-10 Condition Codes (PT) Dizziness & Giddiness R42 Onset 11-14-23 Subjective Information onset: yawned and R ear popped, started dizziness, problems with walking, has decreased since then; have not had any vestibular issues in the past; Symptoms: everything spinning; increase symptoms: sit to lying down; rolling over in bed; looking up; sometimes wake her up from sleeping decrease symptoms: stop and clears few seconds; Active lifestyle without any limitation in activity Reported Pain Level Pain Score 0: Self Report Assessment PT Clinical Summary Romana has the diagnosis of vestibular therapy. She does not have a history of any vestibular issues. She wears glasses and has excessive ear wax removed about once/ year in both ears. Dizziness Handicap index rating of 22% limitation in activity level. With the evaluation: vestibular testing was positive for BPPV on R. Clearance performed with Eply to R and education provided to pt. Skilled PT services are indicated for vestibular therapy, BPPV treatment, with education for HEP. Plan of Care Interventions Neuro Re-education,Patient Education, Therapeutic Activities PT Services Indicated Yes Treatment Frequency and 1-2x/wk for 6 visits Duration These treatments will address the objective and functional deficits as defined above. The patient will be advanced safely and appropriately in order for the patient to progress towards his/her prior level of function. Additional exercises will be introduced and as well as a comprehensive home exercise program upon discharge, if needed, ?to ensure carryover of functional gains achieved in the clinic. This treatment plan has been reviewed and agreement upon by the patient.
--- NOTE | 2024-03-07 15:24 | PCPTNOTE ---
pt called and canceled due to having to go into work today.
== END 2024-03-23 23:59 | disposition home or self-care (01) ==
LOC: ANHPT 12:30
PROVIDERS: PCP Family Medicine; Visit Provider Family Medicine
DX: R42 Dizziness and giddiness (principal)
CPT/HCPCS: 95992; 97110; 97112; 97161; 97530

== ENCOUNTER 2024-03-28 09:50 | Outpatient (RCR) | payer OTHER, BC, SELFPAY ==
--- NOTE | 2024-03-28 10:48 | PTOPDC ---
Assessment and note entered by Genevieve Nieto, PT Assessment Status Discharge ICD-10 Condition Codes (PT) Dizziness and Giddiness R42 Onset 11-14-23 Subjective Information only have dizzy troubles with standing and looking up--reaching up into cabinet and going flat onto her back; lasts about 30 seconds and happens every time; have been trying to drink more water; have been doing the maneuvers at home and Reported Pain Level Pain Score Self Report Additional Pain Score Comments no neck pain, but pain over L shoulder blade -- burning at worst 7/10, sometimes NO pain increase pain at end of work day on the computer all day Assessment PT Clinical Summary Romana has received 6 PT sessions. Compared to the initial evaluation: self rating with Dizziness handicap rating from22 to 6% limitation in activity level; now only has dizziness with standing and looking up and supine/ sit transfer, with duration of 3 to 30 seconds; Education completed for cervical posture, work station set up, self maneuver to clear vestibular system, safety with mobility. The goals were achieved except vestibular symptoms with supine/sit transfer. Discharge PT. Plan of Care PT Services Indicated No
--- NOTE | 2024-03-28 10:49 | PCPTNOTE ---
This treatment is being continued from visit number [id number] Please see documentation on both accounts to view progress. Completed interventions, outcomes, and problems have been marked as Inactive to facilitate the copying of the Care plan routine for recurring accounts.
== END 2024-06-26 23:59 | disposition home or self-care (01) ==
LOC: ANHPT 09:50
PROVIDERS: PCP Family Medicine; Visit Provider Family Medicine
DX: R42 Dizziness and giddiness (principal)
CPT/HCPCS: 97110; 97530

== ENCOUNTER 2024-11-17 03:27 | Day surgery (SDC) | payer OTHER, BC, SELFPAY ==
[2024-11-06 13:38] VITALS: BMI 38.7
--- OUTSIDE RECORDS SUMMARY | 2024-11-17 03:31 | XMS_ITS | Clinical Summary ---
Author Organization [facility] Address [address] [place] [address] Care Team Providers Care Perforator Operator Oil Well Name Role Phone Andrea Peña MD Primary Care Provider [phone] Source Comments [facility],non-owned Affiliates and Associated Physician Practices is amultiple site organization consisting of ambulatory clinics and hospital sitesin [place], [place], [place] and [place]. This disclosure is being madepursuant to the Care Everywhere program and may not contain all information available regarding this patient. Last updated 17.[facility] Allergies Active Allergy Reactions Criticality Noted Date Comments Amoxicillin-Pot Clavulanate Nausea Low 08/23/19 16 Morphine Rash Medium 08/23/2015 Medications * Be aware that medications may not be up to date on this document. Alwaysverify current medications with the patient. Vit-Fe Fumarate-FA ( VITAMINS) 28-0.8 MG TABS [...] = 0.6 oz pur e alcohol) Comments Unknown Sex and Gender Information Value Date Recorded Sex Assigned at Not on file Legal Sex Female 5:24 AM CHEMOTHERAPIST Gender Identity Not on file Sexual Orientation Not on file Last Filed Vital Signs Vital Sign Reading Time Taken Comments Blood Pressure 114/78 10/28/2018 3:07 PM CDT Pulse - - Temperature - - Respiratory Rate - - Oxygen Saturation - - Inhaled Oxygen Concentration - - Weight 79.8 kg (176 lb) 10/28/2018 3:07 PM CDT Height 167.6 cm (5' 6) 10/28/2018 3:07 PM CDT Body Mass Index 28.41 10/28/2018 3:07 PM CDT Plan of Treatment Health Maintenance Due Date Last Done Comments LIPID TESTING 1984 MAMMOGRAM 1984 HIV SCREENING 05/01/1999 HEPATITIS C SCREENING 04/26/2002 DTAP/TDAP/TD VACCINES (1 - Tdap) 05/01/2003 HEPATITIS B VACCINE (1 of 3 - 19+ 3-dose series) 05/01/2003 PAP SMEAR 2005 HPV VACCINE (1 - 3-dose SCDM series) 05/01/2011 DEPRESSION SCREENING 02/06/2024 COVID-19 VACCINE (1 - 2023-2 5 season) 2024 INFLUENZA VACCINE (#1) 2024 ZOSTER VACCINE (1 of 2) 2034 HIB VACCINE Aged Out No longer eligi ble based on patient's age to complete this topic MENINGOCOCCAL (Group B) VACC INE SHARED DECISION-MAKING Aged Out No longer eligibl e based on patient's age to complete this topic MENINGOCOCCAL GROUPS A/C/Y/W VACCINE Aged Out No longer eligible b ased on patient's age to complete this topic PNEUMOCOCCAL VACCINE Aged Out No long er eligible based on patient's age to complete this topic Insurance [facility] Care Teams Perforator Operator Oil Well Relationship Specialty Start Date End Date Andrea Peña MD PCP - General 07/13/15
--- OUTSIDE RECORDS SUMMARY | 2024-11-17 03:31 | XMS_ITS | Encounter Summary ---
Author Organization [facility] Address [address] [place] [address] Care Team Providers Care Associate Automation Engineer Name Role Phone Andrea Peña MD Primary Care Provider [phone] Encounter Details Date Type Department Care Team (Late st Contact Info) Description 12/09/2019 Lab Requisition [facility] DermPath Lab [address] [place] [phone] Nalini Fox MD [address] [facility] [address] [place] [address] Social History Tobacco Use Types Packs/Day Years Used Date Smoking Tobacco: Never Assessed Comments Unknown Sex and Gender Information Value Date Recorded Sex Assigned at Not on file Legal Sex Female 5:24 AM SENIOR MAINFRAME PROGRAMMER ANALYST Gender Identity Not on file Sexual Orientation Not on file documented as of this encounter Plan of Treatment Not on file documented as of this encounter Procedures Procedure Name Priority Date/Time Associated Diagnosis Comments DERMATOPATHOLOGY Routine 12/08/2019 12:0 0 AM SENIOR MAINFRAME PROGRAMMER ANALYST documented in this encounter Results * DERMATOPATHOLOGY (12/08/2019 12:00 AM SENIOR MAINFRAME PROGRAMMER ANALYST) Case Report Dermatopathology Report Case: [id number] Authorizing Provider: Nalini Fox MD Collected: 12/08/2019 12:00 AM Ordering Location: [facility] DermPath Lab Received: 12/09/2019 07:07 AM Pathologist: Pavithra Grossman MD Specimen: Skin, right knee 0 12:06 PM SENIOR MAINFRAME PROGRAMMER ANALYST DERMATOPATHOLOGY LABORATORY Final Diagnosis Specimen A. SKIN, right knee: COMPOUND MELANOCYTIC NEVUS (D22.71) 0 12:06 PM [facility] DERMATOPATHOLOGY LABORATORY at 1206 SENIOR MAINFRAME PROGRAMMER ANALYST Clinical History R/O nevus vs MM, irregular border, brown papule. 0 12:06 PM [facility] DERMATOPATHOLOGY LABORATORY Gross Description Specimen A: Received is one formalin filled container labeled with the patient's name and designated right knee. The specimen consists of a shave measuring [id number]. Jar 0. 0 12:06 PM [facility] DERMATOPATHOLOGY LABORATORY Microscopic Description Specimen A. SKIN, right knee: There are nests of melanocytes at the dermal-epidermal junction and within the dermis. 0 12:06 PM [facility] DERMATOPATHOLOGY LABORATORY Disclaimer An external and internal positive and negative controls are appropriate for the histochemical, immunohistochemical and immunofluorescence stain(s) in this case (if any), except where stated explicitly. The performance characteristics of the stain(s) cited in this report were developed and its performance characteristic determined by the Dermatopathology Laboratory at [facility], directed by Dr. Cyndie Webster. These tests need not be, and therefore are not, approved by the [place] Food and Drug Administration. The tests are used for clinical purposes. Billing Codes Specimen Charges Stain Charges 72034 1 0 12:06 PM [facility] DERMATOPATHOLOGY LABORATORY Embedded Images 0 12:06 PM [facility] DERMATOPATHOLOGY LABORATORY Pathology/Cytolog y TISSUE SPECIMEN FROM SKIN / Unknown 12/08/2019 12/09/2019 7:07 AM [facility] us Nalini Fox MD LAB - PATHOLOGY/CYTOLOGY ORD ERABLES Final Result DERMATOPATHOLOGY LABORATORY [facility] - Department of Dermatology [address], [address] [phone] documented in this encounter Visit Diagnoses Not on filedocumented in this encounter Care Teams Associate Automation Engineer Relationship Specialty Start Date End Date Andrea Peña MD PCP - General 07/13/15 documented as of this encounter
--- OUTSIDE RECORDS SUMMARY | 2024-11-17 03:31 | XMS_ITS | Encounter Summary ---
Author Organization [facility] Address [address] [place] [address] Care Team Providers Care Short Range [employer] Name Role Phone Andrea Peña MD Primary Care Provider [phone] Encounter Details Date Type Department Care Team (Late st Contact Info) Description 07/18/2023 Lab Requisition [facility] - DermPath Lab [address] [place] [phone] Nalini Fox MD [address] [facility] [address] [place] [address] Social History Tobacco Use Types Packs/Day Years Used Date Smoking Tobacco: Never Smokeless Tobacco: Never Alcohol Use Standard Drinks/Week Comments Yes 0 (1 standard drink = 0.6 oz pur e alcohol) Comments Unknown Sex and Gender Information Value Date Recorded Sex Assigned at Not on file Legal Sex Female 5:24 AM MANAGER METROLOGY Gender Identity Not on file Sexual Orientation Not on file documented as of this encounter Plan of Treatment Not on file documented as of this encounter Procedures Procedure Name Priority Date/Time Associated Diagnosis Comments DERMATOPATHOLOGY Routine 07/18/2023 1:36 PM CDT documented in this encounter Results * DERMATOPATHOLOGY (07/18/2023 1:36 PM CDT) Case Report Dermatopathology Report Case: [id number] Authorizing Provider: Nalini Fox MD Collected: 07/18/2023 01:36 PM Ordering Location: [facility] Physician [facility] - Received: 07/19/2023 01:56 PM DermPath Lab Pathologist: Denisa Sunshine MD Specimen: Skin, left back 4 3:53 PM CDT DERMATOPATHOLOGY LABORATORY Final Diagnosis Specimen A. SKIN, left back: INTRADERMAL MELANOCYTIC NEVUS (D22.5) 4 3:53 PM CDT DERMATOPATHOLOGY LABORATORY at 1553 CDT Clinical History Nevus irregular irritated Jonas papule [...] characteristic determined by the Dermatopathology Laboratory at [facility], directed by Dr. Cyndie Webster. These tests need not be, and therefore are not, approved by the [place] Food and Drug Administration. The tests are used for clinical purposes. Billing Codes Specimen Charges Stain Charges 33569 1 4 3:53 PM CDT DERMATOPATHOLOGY LABORATORY Embedded Images 4 3:53 PM CDT DERMATOPATHOLOGY LABORATORY Pathology/Cytolo gy TISSUE SPECIMEN FROM SKIN / Unknown 07/18/2023 1:36 PM CDT 07/19/2023 1:56 PM CDT us Nalini Fox MD LAB - PATHOLOGY/CYTOLOGY ORD ERABLES Final Result DERMATOPATHOLOGY LABORATORY [facility] - Department of Dermatology [address], [address] [phone] documented in this encounter Visit Diagnoses Not on filedocumented in this encounter Care Teams [employer] Relationship Specialty Start Date End Date Andrea Peña MD PCP - General 07/13/15 documented as of this encounter
--- OUTSIDE RECORDS SUMMARY | 2024-11-17 03:31 | XMS_ITS | Encounter Summary ---
Author Organization [facility] Address [address] [place] [address] Care Team Providers Care Geographic Information System Surveyor Name Role Phone Andrea Peña MD Primary Care Provider [phone] Encounter Details Date Type Department Care Team (Late st Contact Info) Description 09/04/[address] 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 TRUCK DRIVER Gender Identity Female 10/03/2021 7:59 AM CDT Sexual Orientation Straight 07/29/2020 7: 16 AM CDT documented as of this encounter Plan of Treatment Upcoming Encounters Date Type Department Care Team (Latest Contact Info) Description 12/25/2024 12:15 PM POWDER TRUCK DRIVER Hospital Encounter [facility] [place] [address] [place] [phone] Simi Bess MD [address] [place] [phone] 12/25/2024 12:15 PM POWDER TRUCK DRIVER - 12/25/2024 1:50 PM POWDER TRUCK DRIVER Surgery [facility] [place] [address] [place] [address] Simi Bess MD [address] [address] LAPAROSCOPIC BILATERAL SALPINGECTOMY Scheduled Procedures Name Priority Associated Diagnoses Date/Ti me LAPAROSCOPIC SALPINGECTOMY Hydrosalpinx 12/25/2024 12:15 PM POWDER TRUCK DRIVER documented as of this encounter Visit Diagnoses Not on filedocumented in this encounter Care Teams Geographic Information System Surveyor Relationship Specialty Start Date End Date Andrea Peña MD [address] [place] [id number] PCP - General 01/15/17 documented as of this encounter
--- OUTSIDE RECORDS SUMMARY | 2024-11-17 03:31 | XMS_ITS | Clinical Summary ---
Author Organization [facility] Address [address] [place] [address] Care Team Providers Care Loan Servicing Representative Name Role Phone Andrea Peña MD Primary Care Provider [phone] Allergies Active Allergy Reactions Criticality Noted Date Comments Aloe Vera Unknown Amoxicillin-Pot Clavulanate Nausea & Vomiting Low 0 08/23/2015 Estradiol Rash Medium 08/14/2023 Morphine Rash Medium 08/23/2015 Opioids - Morphine Analogues Thimerosal Unknown 08/05/2020 Medications valACYclovir (VALTREX) 500 mg tablet Take 1 tablet (500 mg total) by mouth daily 3 Active chorionic gonadotropin (PREGNYL) 10,000 unit injection Inject up to 10,000 units IM as directed by 1 each 1 4 Active Additional Information Patient not taking.Reported on 02/14/2024 follitropin beta (Follistim AQ) 900 unit/1.08 mL cartridge Inject 75u to 300u SQ daily as directed by 3.24 mL 2 4 Active Additional Information Patient not taking.Reported on 02/14/2024 menotropins (Menopur) 75 unit recon soln Inject 75 to 300 units SQ daily as directed by 30 each 2 4 Active Additional Information Patient not taking.Reported on 02/14/2024 azithromycin (ZITHROMAX) 500 mg tabletIndication s:Prophylaxis, Medical Take both tabs po at the same time with food as directed by 2 tablet 1 4 Active Additional Information Patient not taking.Reported on 02/14/2024 vit 54-kryv-vjopv-dh a 27mg iron- 800 mcg-250 mg capsule Take 1 tablet by mouth daily 30 capsule 11 4 Active estradioL (VIVELLE-DOT) 0.1 mg/[address] 2 patches on the skin 4 Active needle, disp, 18 G (BD Regular Bevel Jewett) 18 gauge x 1 1/2 needle 4 Active needle, disp, 23 gauge 23 gauge x 1 1/2 needle 4 Active progesterone 50 mg/mL injection Inject 1 mL (50 mg total) into the muscle as instructed daily 4 Active syringe, disposable, 3 mL syringe 4 Active Clomid 50 mg tablet 5 Active doxycycline hyclate 100 mg capsule Take 1 tab PO BID x 5 days. Start day prior to scheduled HSG. 4 Active ganirelix 250 mcg/0.5 mL syringe Inject 250 mcg under the skin daily 4 Active letrozole (FEMARA) 2.5 mg tablet Take 3 tablets (7.5 mg total) by mouth daily 4 Active BD SafetyGlide Needle 18 gauge x 1 1/2 needle USE TO DRAW UP AND INJECT TESTOSTERONE 4 Active BD Luer-Caren Syringe 3 mL 23 gauge x 1 1/2 syringe USE TO DRAW UP AND INJECT TESTOSTERONE 4 Active BD Luer-Caren Syringe 3 mL 23 gauge x 1 1/2 syringe 5 Active azithromycin (ZITHROMAX) 250 mg tablet TAKE 2 TABLETS BY MOUTH TODAY, THEN TAKE 1 TABLET DAILY FOR 4 DAYS DIRECTED 4 Active Tirosint 112 mcg capsuleIndicatio ns:Hypothyroidis m, unspecified type Take one tablet by itself, with water, 30 minutes prior to breakfast. Take an extra tablet every 10 days 100 capsule 3 5 Active multivit 61-khma-oqhgkk 1-dha (PNV-DHA) 27 mg iron-1 mg -300 mg capsule TAKE 1 CAPSULE BY MOUTH EVERY DAY 90 capsule 5 Active Active Problems Problem Noted Date Diagnosed Date Hydrosalpinx 10/01/2024 Other fatigue 10/08/2023 Pedal edema 10/08/2023 Encounter for artificial insemination 03/24/2023 Abnormal weight gain 10/28/2022 Assessment & Plan (10/28/2022 11:48 PM CDT): Discussed lifestyle modifications BMI 29.0-29.9,adult 12/15/2020 Assessment & Plan (12/15/2020 10:58 PM PIN INSERTER): She is interested in weight loss and restarted Weight Watcher's recently Reviewed lifestyle modifications She is not interested in pharmacotherapy at this time Endometrial polyp 09/22/2019 Low grade squamous intraepit h lesion on cytologic smear cervix (lgsil) 08/19/2019 Hypothyroidism 06/19/2018 Assessment & Plan (02/18/2023 5:26 PM PIN INSERTER): TSH is at goal Continue Tirosint Repeat [...] away Assessment & Plan (12/15/2020 10:57 PM PIN INSERTER): Continue Synthroid 75 mcg once daily TSH [...] Encounters Date Type Department Care Team Description 09/30/2024 Telephone [facility] Obstetrical Gynecology [address] [place] [address] [place] [phone] Simi Bess MD 09/10/2024 4:00 PM CDT Office Visit [facility] Medicine Endocrinology Metabolism and Lipid [address] [facility] 2nd Floor [address] [place] [address] Stephani Gallego MD Hypothyroidism, unspecified type (Primary Dx) 09/09/2024 8:55 AM CDT Lab [place] [id number] [place] [address] Myxedema heart disease (Primary Dx) from Last 3 Months Immunizations Immunization Administration Dates Next Due DTP 08/16/1989, 6,1984,09/02,1984 Influenza, Quadrivalent, Spl it, Preservative Free, Intramuscular 11/19/2019 Influenza, Unspecified 11/15/2020 MMR 02/17/2022,09/17/1992,08/04/1985 OPV 08/16/1989, 6,1984,09/02,1984 Pfizer SARS-CoV-2 Monovalent Vaccination (12+ Yrs) PURPLE 01/09/2021,05/29/2020,05/08/2020 Tdap 12/22/2017 Surgical History Surgery Date Site/Laterality Comments EYE SURGERY Eye Surgery - (Added by TW Conv) [place] TONSILLECTOMY PRIMARY/SECONDARY <AGE 12 Tonsillectomy - (Added [...] History Relation Name Comments Obesity Father Johan Horner Osteoarthritis Father Johan Horner Snoring Father Johan Horner Cancer Mother Britni Horner Cervical cancer Mother Britni Horner Dx in her 3 0s Diabetes Mother Britni Horner Heart disease Mother Britni Horner Hyperlipidemia Mother Britni Horner Hypertension Mother Britni Horner Obesity Mother Britni Horner Osteoarthritis Mother Britni Horner Rectal cancer Mother Britni Horner Family histor y of malignant neoplasm - (Added by TW Conv) Skin cancer Mother Britni Horner Sleep apnea Mother Britni Horner Snoring Mother Britni Horner Breast cancer Neg Hx Ovarian cancer Neg Hx Uterine cancer Neg Hx Relation Name Status Comments Father Johan Horner Alive Mother Britni Horner Alive Other Social History Tobacco Use Types [...] on file Legal Sex Female 5:24 AM PIN INSERTER Gender Identity Female 10/03/2021 7:59 AM CDT [...] Sign Reading Time Taken Comments Blood Pressure 118/83 09/10/2024 4:15 PM CDT Pulse 78 09/10/2024 4:15 PM CDT Temperature 36.3 C (97.4 F) 09/10/2024 4:15 PM CDT Respiratory Rate 19 05/01/2022 9:50 AM CDT Oxygen Saturation 99% 09/10/2024 4:15 PM CDT Inhaled Oxygen Concentration - - Weight 109.3 kg (241 lb) 09/10/2024 4:15 PM CDT Height 167.6 cm (5' 6) 09/10/2024 4:15 PM CDT Body Mass Index 38.9 09/10/2024 4:15 PM CDT Plan of Treatment Upcoming Encounters Date Type Department Care Team (Latest Contact Info) Description 12/25/2024 12:15 PM PIN INSERTER Hospital Encounter [facility] [place] [address] [place] [address] [phone] Simi Bess MD [address] [place] [address] [phone] 12/25/2024 12:15 PM PIN INSERTER - 12/25/2024 1:50 PM PIN INSERTER Surgery [facility] [place] [address] [place] [address] [phone] Simi Bess MD [address] [place] [address] [phone] LAPAROSCOPIC BILATERAL SALPINGECTOMY Scheduled Procedures Name Priority Associated Diagnoses Date/Ti me LAPAROSCOPIC SALPINGECTOMY Hydrosalpinx 12/25/2024 12:15 PM PIN INSERTER Health Maintenance Due Date Last Done Comments Depression Screening 1985 Hepatitis B Screening 2002 Pneumococcal vaccine <65 (1 of 2 - PCV) 05/01/2003 Zoster Vaccine (1 of 2) 05/01/2003 HPV Vaccines (1 - 3-dose SCD M series) 05/01/2011 Varicella Vaccines (1 of 2 - 13+ 2-dose series) 03/17/2022 Covid-19 Vaccine (4 - 2024-2 6 season) 2024 01/09/2021, 05/29/2020, 05/08/2020 Influenza Vaccine (#1) 2024 , 11/15/2020, 11/19/2019 Cervical Cancer Screening 02/13/20252024, 02/14/2024, 02/12/2023, Additional history exists Regular Well Visit/Exam 18-64 02/13/2025, 02/12/2023, 09/23/2021, Additional history exists Breast Cancer Screening-Mammogram 05/07/2025 025 DTaP/Tdap/Td Vaccine (7 - Td or Tdap) 12/23/2027 12/22/2017, 08/16/1989, 11/17/1985, Additional history exists Hepatitis C Screening Completed 01/19/2023 , 02/09/2022, 06/26/2019 Procedures Procedure Name Priority Date/Time Associated Diagnosis Comments TSH Routine 09/09/2024 9:09 AM CDT Myxedema heart disease T4, FREE Routine 09/09/2024 9:09 AM CDT Myxedema heart disease SCREENING MAMMOGRAM BILATERAL W ANDRZEJ Schedule Routine, Read Routine (OP Routine) 05/07/2024 7:44 AM CDT Well woman exam HIGH RISK HPV DNA DETECTION WITH GENOTYPING Routine 02/14/2024 9:42 AM PIN INSERTER Well woman exam HEPATITIS C ANTIBODY Routine 01/19/2023 7:31 AM PIN INSERTER Screen for STD (sexually transmitted disease) from Last 3 Months or Most Recently Relevant to Health Maintenance Results * TSH (09/09/2024 9:09 AM CDT) Thyroid Stimulating Hormone 1.36 0.30 - 4.20 mcIUnit/mL Blood Venous blood specimen / Unknown 09/09/2024 9:09 AM CDT 09/09/2024 10:46 AM CDT us Stephani Gallego MD LAB BLOOD ORDERABLES Final Resu lt Performing Organization Address [facility] Co de Phone Number [address] [employer] [place] [address] * T4, free (09/09/2024 9:09 AM CDT) Free T4 1.10 0.90 - 1.70 ng/dL Blood Venous blood specimen / Unknown 09/09/2024 9:09 AM CDT 09/09/2024 10:46 AM CDT us Stephani Gallego MD LAB BLOOD ORDERABLES Final Resu lt Performing Organization Address [facility] Co de Phone Number [address] [address] * Screening Mammogram Bilateral W Andrzej (05/07/2024 7:44 AM CDT) Anatomical Region Laterality Modality Breast Bilateral Mammography Impressions 05/07/2024 8:56 AM CDT BI-RADS ATLAS category (overall): 1 - Negative There is no mammographic evidence of malignancy. A 1 year screening mammogram is recommended. The patient has been or will be contacted. We recommend annual screening mammography for women at average risk of breast cancer beginning at age 40, based on guidelines of the [place] [employer] (ACR Practice Parameter for the Performance of Screening and Diagnostic Mammography) and [place] [employer]. For women with and elevated risk of breast cancer, please refer to the ACR Practice Parameter for specific screening recommendations. The patient will be entered into a reminder system with a target due date of 1 year for her next screening exam. Narrative 05/07/2024 8:56 AM CDT Screening Mammogram Bilateral W Andrzej: 05/07/24 The study was acquired using full field digital technology and interpreted from soft copy. 2D digital mammographic views, as well as 3D digital tomosynthesis were performed in the CC and MLO projections. This study was resulted using Computer-Aided Detection (CAD). CLINICAL: Well woman exam. No relevant medical history has been documented for this patient. History of breast cancer in Neg Hx. COMPARISON: Baseline Screening Mammography. No prior mammography is available for comparison. BREAST TISSUE: The breasts are heterogeneously dense, which may obscure small masses. FINDINGS: No suspicious masses, suspicious calcifications, or other suspicious findings are seen within either breast. Simi Bess MD IM MAMMO PROCEDURES Mabel l Result * High Risk HPV DNA Detection with Genotyping (Molecular component) (02/14/2024 9:42 AM PIN INSERTER) HPV HR 16 Not Detected Not Detected [facility] Comment:Testing performed by : [facility], [address] [place]., [address] HPV HR 18 Not Detected Not Detected [facility] Comment:Testing performed by : [facility], [address] [place]., [address] HPV HR Non 16/18 Not Detected Not Detected [facility] Comment: Interpretive Data Nucleic acid amplification for detection of high-risk Human Papilloma virus (HPV) is performed by the María Job 6800 HPV test. This assay specifically detects HPV-16 and HPV-18 genotypes. The following HPV genotypes are detected as high-risk HPV: HPV-31, 33, 35, ,39, 45, 51, 52, [...] this test have been verified by the [facility] Molecular Infectious Disease laboratory. Correlate with separately reported cytology results, as applicable. Interpretive data last revised 22 Testing performed by: [facility], [address] [facility], [place]., [address] Endocervical 02/14/2024 9:42 AM PIN INSERTER 02/18/2024 8:43 AM PIN INSERTER Narrative [facility] - 02/19/2024 4:53 AM PIN INSERTER Clinical history and diagnosis->screening Testing type->Screening Last menstrual period (date if known)->02/04/24 Simi Bess MD LAB BODY FLUIDS AND STOOL S ORDERABLES Final Result Performing Organization Address City/[facility]/ZIP Co de Phone Number [facility] [address] [facility] Department [place] [address] [facility] * Hepatitis C antibody Blood (01/19/2023 7:31 AM PIN INSERTER) Hep C Ab Nonreactive Nonreactive [facility] Comment:Antibodies to HCV no t detected. Does NOT exclude the possibility of recent exposure to HCV. Current interpretive data was last revised on 21 Blood 01/19/2023 7:31 AM PIN INSERTER 01/19/2023 6:36 PM PIN INSERTER Ludy Edwards MD LAB MICROBIOLOGY - GENERAL OR DERABLES Final Result [facility] [address] [facility] [place] [address] from Last 3 Months or Most Recently Relevant to Health Maintenance Insurance [place] [employer] [place] [facility] [place] [facility] Advance Directives For more information, please contact: [phone] * Full Code (Latest Code Status on File) Date Activated Date Inactivated Comments 05/01/2022 7:11 AM 05/02/2022 5:10 AM Care Teams Loan Servicing Representative Relationship Specialty Start Date End Date Andrea Peña MD [address] [place] [address] PCP - General 01/15/17
--- OUTSIDE RECORDS SUMMARY | 2024-11-17 03:31 | XMS_ITS | Clinical Summary ---
Author Organization [facility] Address [facility] [place] [address] Care Team Providers Care Bus Monitor Name Role Phone Andrea Peña MD Primary Care Provider [phone] Social History Tobacco Use Types Packs/Day Years Used Date Smoking Tobacco: Never Assessed Comments Unknown Sex and Gender Information Value Date Recorded Sex Assigned at Female 05/14/2024 9:19 AM CDT Legal Sex Female 4:28 PM CDT Gender Identity Not on file Sexual Orientation Not on file Plan of Treatment Health Maintenance Due Date Last Done Comments Cervical Cancer Screening Pap Smear (Age 30 to 64) Every 3 Years 1984 Annual Physical 05/01/1987 Hepatitis C 2002 Hepatitis B Vaccines (1 of 3 - 19+ 3-dose series) 05/01/2003 HPV Vaccines (1 - 3-dose SCDM series) 05/01/2011 Cervical Cancer Screening Pap with HPV Testing (Age 30 to 64) Every 5 Years 2014 Cervical Cancer Screening with HPV 2014 Influenza Adult (#1) 2024 11/30/2023, 12/23/2022, 11/26/2021, Additional history exists Mammogram Screening 05/07/2026 05/07/2024 DTaP, Tdap and Td Vaccines (7 - Td or Tdap) 12/23/2027 12/22/2017, 08/16/1989, 11/17/1985, Additional history exists COVID-19 Vaccine Completed 11/30/2023, , 01/09/2021, Additional history exists Meningococcal B Vaccine Aged Out No l onger eligible based on patient's age to complete this topic Meningococcal Vaccine Aged Out No hong heather eligible based on patient's age to complete this topic Pneumococcal Vaccine: Pediatrics (0 to 5 Years) and At-Risk Patients (6 to 49 Years) Aged Out No longer eligible based on patient's age to complete this topic RSV Immunizations Under 20 Months Aged Out No longer eligible based on patient's age to complete this topic Insurance [facility] [address] Care Teams Bus Monitor Relationship Specialty Start Date End Date Andrea Peña MD [address] [place] [id number] PCP - General FAMILY PRACTICE 06/04/24
[2024-11-17 06:15] VITALS: BP 142/85; PULSE 73; RESP 18; TEMP 36.8; O2SAT 99; BMI 38.0
--- NOTE | 2024-11-17 06:55 | WPDANESEPPF ---
Anes - Initial Pre Proc Eval Procedure: Operation Date: 11/17/24 07:30 Proposed Procedures p Colonoscopy - Bharat Bhatti MD Date/Time: 11/17/24 06:55 Surgeon: Bharat Bhatti MD Pre Op Diagnosis: Family history of malignant neoplasm of digestive Patient Data Age: 39 Gender: F Height: 1.68 m Weight: 107 kg Last Vital Signs Temp 36.8 C 11/17/24 06:15 Pulse 73 11/17/24 06:15 Resp 18 11/17/24 06:15 BP 142/85 H 11/17/24 06:15 Pulse Ox 99 11/17/24 06:15 O2 Del Method Room Air 11/17/24 06:15 Allergies Allergy/AdvReac Type Severity Reaction Status Date / Time thimerosal Allergy Intermediate HIVES Verified 11/17/24 06:21 morphine Allergy Unknown Rash Verified 11/17/24 06:21 aloe Allergy Rash Verified 11/17/24 06:21 amoxicillin AdvReac Unknown sick to Verified 11/17/24 06:21 stomach doxycycline AdvReac Unknown Unknown Verified 11/17/24 06:21 BENZOPEROXIDE Allergy Rash Uncoded 08/15/24 16:45 AMOXICILLIN TRIHYDRATE AdvReac Nausea Uncoded 08/15/24 16:45 Home Medications ?Medication ?Instructions ?Recorded ?Confirmed ?Type levothyroxine 112 mcg capsule 112 mcg PO DAILY 10/11/23 11/17/24 History (Tirosint) multivitamin no.47-iron fum 27 1 cap PO DAILY 10/11/23 11/17/24 History mg-folate no.1 1 mg-dha 300 mg capsule (PNV-DHA) valacyclovir 1 gram tablet 1,000 mg PO TID PRN cold sores 11/06/24 11/17/24 History Patient hx anesthesia problems: none Family hx anesthesia problems: none Results Review: All pre-operative results and documents have been reviewed as part of the pre-operative evaluation. [facility] Past Medical History Medical History Family history of colon cancer Obesity Hypothyroidism Surgical History Surgical History History of adenoidectomy History of tonsillectomy Family History Family History Father Diabetes mellitus Hypertension Family history of arthritis Family history of malignant neoplasm Mother Rectal cancer Diabetes mellitus Hypertension Heart disease Grandparent Stomach cancer Diabetes mellitus Hypertension Heart disease Grandparent Lung cancer Social History Social History Smoking status: Never smoker Second hand tobacco smoke exposure: No Alcohol intake: never Substance use: never Do You Feel Safe in your Home?: Yes Lack of Transportation: No Lack of Food: Never True Current Housing: I Have Housing Concerned About Future Housing: No Difficulty Paying Gas/Electric Bills: No Difficulty Paying for Meds: No Currently Unemployed: No Education: Master's Degree or Higher Difficulty w/ Childcare or Family Care: No Living arrangements: with family Occupation/Education: occupation 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 Informed Consent: The patient's anesthetic plan and its attendant risks and benefits were discussed with the patient/family/POA. Questions were solicited and answers provided to the satisfaction of the patient/family/POA.
[2024-11-17] MEDS: LACTATED RINGERS 1,000 ML 150 ML IV CONT (07:06)
--- NOTE | 2024-11-17 07:28 | PM.HPGS ---
History of Present Illness History of Present Illness Consent: Risks, benefits, and alternatives have been discussed and questions answered. Patient agrees to proceed with procedure. Chief complaint: Family history of malignant neoplasm of digestive Narrative: Romana Horner is a 39 year old female here for first colonoscopy, mother had rectal cancer Review of Systems Review of Systems: All systems reviewed & are unremarkable except as noted in HPI and below PMFSH Past Medical History Medical History Family history of colon cancer Obesity Hypothyroidism Surgical History Surgical History History of adenoidectomy History of tonsillectomy Family History Family History Father Diabetes mellitus Hypertension Family history of arthritis Family history of malignant neoplasm Mother Rectal cancer Diabetes mellitus Hypertension Heart disease Grandparent Stomach cancer Diabetes mellitus Hypertension Heart disease Grandparent Lung cancer Social History Social History Smoking status: Never smoker Second hand tobacco smoke exposure: No Alcohol intake: never Substance use: never Do You Feel Safe in your Home?: Yes Lack of Transportation: No Lack of Food: Never True Current Housing: I Have Housing Concerned About Future Housing: No Difficulty Paying Gas/Electric Bills: No Difficulty Paying for Meds: No Currently Unemployed: No Education: Master's Degree or Higher Difficulty w/ Childcare or Family Care: No Living arrangements: with family Occupation/Education: occupation 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 Gender identity (if verbalized by the patient): Female Meds Home Medications and Allergies Home Medications ?Medication ?Instructions ?Recorded ?Confirmed ?Type levothyroxine 112 mcg capsule 112 mcg PO DAILY 10/11/23 11/17/24 History (Tirosint) multivitamin no.47-iron fum 27 1 cap PO DAILY 10/11/23 11/17/24 History mg-folate no.1 1 mg-dha 300 mg capsule (PNV-DHA) valacyclovir 1 gram tablet 1,000 mg PO TID PRN cold sores 11/06/24 11/17/24 History Allergies Allergy/AdvReac Type Severity Reaction Status Date / Time thimerosal Allergy Intermediate HIVES Verified 11/17/24 06:21 morphine Allergy Unknown Rash Verified 11/17/24 06:21 aloe Allergy Rash Verified 11/17/24 06:21 amoxicillin AdvReac Unknown sick to Verified 11/17/24 06:21 stomach doxycycline AdvReac Unknown Unknown Verified 11/17/24 06:21 BENZOPEROXIDE Allergy Rash Uncoded 08/15/24 16:45 AMOXICILLIN TRIHYDRATE AdvReac Nausea Uncoded 08/15/24 16:45 Vital Signs Vital Signs - 24 hr 11/17/24 06:15 Temperature 98.2 F Pulse Rate 73 Respiratory Rate 18 Blood Pressure 142/85 H Pulse Oximetry 99 Oxygen Delivery Room Air Exam Const: General: comfortable and no acute distress HENMT: Face/Nose/Sinus: Normal nares present Eyes: General: appearance normal, both eyes and all related structures Neck: Neck: no JVD Resp: Auscultation: clear to auscultation bilaterally Cardio: Rate: regular rate Rhythm: regular rhythm GI: Inspection: non-distended GI Palp: Yes Soft to palpation Skin: General skin exam: normal color Extrem: General: normal to inspection Psych: Mental Status: mental status grossly normal Assessment and Plan Assessment and plan (1) Family history of colon cancer: Code(s): Z80.0 - Family history of malignant neoplasm of digestive organs Status: Acute Assessment and Plan: colonoscopy
[2024-11-17 07:44] VITALS: BP 128/70; PULSE 83; RESP 18; O2SAT 99
--- NOTE | 2024-11-17 07:44 | S_PTH ---
PATIENT: Romana Horner LOC: [facility] [place]#:[id number] AGE/SX: 39/F ROOM: RE11/17/[address]: Bharat Bhatti MD : 1985 BED: DIS: 11/17/2024 SPEC #: [id number] RECD: 11/17/24 08:57 STATUS: GERA RECalixto #: [id number] BRAULIO: 11/17/24 07:[address]: Bharat Bhatti DEPT: [facility] Surgical RECD BY: Emily Lopez ENTERED: 11/17/24 08:57 SP TYPE: Surgical OTHR DR: Andrea Peña MD Tissues: A - Colon Biopsy Procedures: Hematoxylin and Eosin Stain Gross and Microscopic Level 4
[2024-11-17 07:54] VITALS: BP 125/70; PULSE 76; RESP 18; O2SAT 100
[2024-11-17 08:04] VITALS: BP 113/66; PULSE 67; RESP 18; O2SAT 100
== END 2024-11-17 08:16 | disposition home or self-care (01) ==
PROVIDERS: PCP Family Medicine; Referring Provider Family Medicine; Visit Provider Internal Medicine Gastroenterology
PROC: 0DJD8ZZ Inspection of Lower Intestinal Tract, Via Natural or Artificial Opening Endoscopic (ICD-10-PCS; CPT 45378; principal; 2024-11-17 07:30)
DX: Z12.11 Encounter for screening for malignant neoplasm of colon (principal); E03.9 Hypothyroidism, unspecified; E66.9 Obesity, unspecified; Z68.38 Body mass index [BMI] 38.0-38.9, adult; Z98.890 Other specified postprocedural states; Z80.0 Family history of malignant neoplasm of digestive organs; Z80.1 Family history of malignant neoplasm of trachea, bronchus and lung; Z82.49 Family history of ischemic heart disease and other diseases of the circulatory system
CPT/HCPCS: 45380; 88305; J2704; J7120